=== PATIENT | male | born 1955 | race Caucasian/White ===

== ENCOUNTER 2020-05-07 08:32 | Inpatient (IN) | payer MEDICAID ==
[2020-05-07] VITALS (7 sets, daily range): BP systolic 94–138; BP diastolic 9–74
[~2020-05-07] VITALS: Ht 175.3 cm; Wt 89.8 kg
[2020-05-07] MEDS ORDERED: Pantoprazole Inj IVP ONE (08:45)
--- NOTE | 2020-05-07 08:46 | Emergency Room Report ---
History of Present Illness General Chief Complaint: weakness Source: Patient Present Illness HPI Patient is a 64-year-old male who presents to the ER complaining of extreme fatigue. Patient states that he had 10-11 episodes of watery diarrhea yesterday and today feels extremely weak and fatigued. He denies any headache or blurry vision. He denies any focal weakness. Patient denies any cough. He complains of epigastric abdominal pain. Patient states that he has had multiple abdominal surgeries in the past. Patient also complains of slight chest pain and shortness of breath. He states he has a history of heart disease. Patient states that he gets his care in [place]. He denies any sick contacts. He denies any rash. Allergies: Coded Allergies: No Known Allergies (Unverified , 05/07/20) Patient History Reviewed Nursing Documentation: PMH: Agreed; PSxH: Agreed Review of Systems All Other Systems: negative except mentioned in HPI Physical Exam Sp02 EP Interpretation: reviewed, normal General Appearance: alert, GCS 15, non-toxic, mild distress Head: normocephalic, atraumatic Eyes: bilateral eye normal inspection, bilateral eye PERRL ENT: hearing grossly normal, normal pharynx, no angioedema, normal voice, dry mucus membranes Neck: full range of motion, no meningismus Respiratory: chest non-tender, normal breath sounds, speaking full sentences, other - Bibasilar rhonchi Cardiovascular #1: regular rate, rhythm, no edema Gastrointestinal: no guarding, no rebound, other - Epigastric tenderness to palpation Rectal: deferred Musculoskeletal: normal range of motion Neurologic: body die maker III-XII nml as tested, oriented x3 Psychiatric: no suicidal/homicidal ideation Skin: no rash Lymphatic: no adenopathy Procedures Critical Care Time Critical Care Time Total critical care time: Approximately 35 minutes. Due to a high probability of clinically significant, life threatening deterioration, the patient required my highest level of preparedness to intervene emergently and I personally spent this critical care time directly and personally managing the patient. This critical care time included obtaining a history; examining the patient; pulse oximetry; ordering and review of studies; arranging urgent treatment with development of a management plan; evaluation of patient's response to treatment ; frequent reassessment; and, discussions with other providers.This critical care time was performed to assess and manage the high probability of imminent, life-threatening deterioration that could result in multi-organ failure. It was exclusive of separately billable procedures and treating other patients and teaching time. Please see MDM section and the rest of the note for further information on patient assessment and treatment. Medical Decision Making Diagnostic Impression: Primary Impression: Severe sepsis Additional Impression: Pneumonia ER Course Patient has been pancultured. Patient presented with borderline blood pressure which improved after IV fluids. Patient was not given the full 30 cc/kg of IV fluids due to risk of respiratory failure as BNP is almost 2000. Patient started on vancomycin as well as cefepime. Patient to be admitted for further treatment and evaluation. Laboratory Tests Test 05/07/20 08:55 05/07/20 10:10 White Blood Count 6.5 K/UL (4.8-10.8) Red Blood Count 3.93 M/UL (4.70-6.10) L Hemoglobin 10.2 G/DL (14.2-18.0) L Hematocrit 33.5 % (42.0-52.0) L Mean Corpuscular Volume 85 FL (80-99) Mean Corpuscular Hemoglobin 25.8 PG (27.0-31.0) L Mean Corpuscular Hemoglobin Concent 30.3 G/DL (32.0-36.0) L Red Cell Distribution Width 17.8 % (11.6-14.8) H Platelet Count 203 K/UL (150-450) Mean Platelet Volume 7.9 FL (6.5-10.1) Neutrophils (%) (Auto) 67.9 % (45.0-75.0) Lymphocytes (%) (Auto) 23.3 % (20.0-45.0) Monocytes (%) (Auto) 5.3 % (1.0-10.0) Eosinophils (%) (Auto) 2.7 % (0.0-3.0) Basophils (%) (Auto) 0.9 % (0.0-2.0) Prothrombin Time 11.8 SEC (9.30-11.50) H Prothrombin Time INR 1.1 (0.9-1.1) Activated Partial Thromboplast Time 22 SEC (23-33) L Sodium Level 140 MMOL/L (136-145) Potassium Level 4.2 MMOL/L (3.5-5.1) Chloride Level 107 MMOL/L (98-107) Carbon Dioxide Level 25 MMOL/L (21-32) Anion Gap 8 mmol/L (5-15) Blood Urea Nitrogen 18 mg/dL (7-18) Creatinine 1.3 MG/DL (0.55-1.30) Estimated Glomerular Filtration Rate 55.9 mL/min (>60) Glucose Level 142 MG/DL (74-106) H Lactic Acid Level 3.30 mmol/L (0.4-2.0) H Calcium Level 8.7 MG/DL (8.5-10.1) Phosphorus Level 3.8 MG/DL (2.5-4.9) Magnesium Level 2.2 MG/DL (1.8-2.4) Total Bilirubin 0.2 MG/DL (0.2-1.0) Aspartate Amino Transferase (AST) 28 U/L (15-37) Alanine Aminotransferase (ALT) 42 U/L (12-78) Alkaline Phosphatase 73 U/L (46-116) Total Creatine Kinase 39 U/L (26-308) Troponin I 0.013 ng/mL (0.000-0.056) Pro-B-Type Natriuretic Peptide 1147 pg/mL (0-125) H Total Protein 6.2 G/DL (6.4-8.2) L Albumin 3.0 G/DL (3.4-5.0) L Globulin 3.2 g/dL Albumin/Globulin Ratio 0.9 (1.0-2.7) L Lipase 218 U/L (73-393) Urine Color Pale yellow Urine Appearance Clear Urine pH 5 (4.5-8.0) Urine Specific [place] 1.010 (1.005-1.035) Urine Protein Negative (NEGATIVE) Urine Glucose (UA) Negative (NEGATIVE) Urine Ketones Negative (NEGATIVE) Urine Blood Negative (NEGATIVE) Urine Nitrite Negative (NEGATIVE) Urine Bilirubin Negative (NEGATIVE) Urine Urobilinogen Normal MG/DL (0.0-1.0) Urine Leukocyte Esterase Negative (NEGATIVE) Urine Opiates Screen Negative (NEGATIVE) Urine Barbiturates Screen Negative (NEGATIVE) Phencyclidine (PCP) Screen Negative (NEGATIVE) Urine Amphetamines Screen Negative (NEGATIVE) Urine Benzodiazepines Screen Positive (NEGATIVE) H Urine Cocaine Screen Negative (NEGATIVE) Urine Marijuana (THC) Screen Negative (NEGATIVE) Microbiology Date/Time Source Procedure Growth Status 05/07/20 08:55 Nasopharynx SARS-CoV-2 RdRp Gene Assay - Final Complete EKG Diagnostic Results EKG Time: 08:33 EP Interpretation: Lisa Akins MD Rate: normal - 64 bpm Rhythm: NSR ST Segments: no acute changes Other Impression Sinus rhythm with first-degree AV block inverted T waves V3 through V6 as well as 1 and aVL ASA given to the pt in ED: Yes Rhythm Strip Diag. Results Rhythm Strip Time: 08:45 EP Interpretation: yes - Lisa Akins MD Rate: 64 bpm Rhythm: NSR, no PVC's, no ectopy Chest X-Ray Diagnostic Results Chest X-Ray Diagnostic Results : Chest X-Ray Ordered: Yes # of Views/Limited/Complete: 1 View Indication: Chest Pain EP Interpretation: Yes Interpretation: no consolidation, no effusion, no pneumothorax, no acute cardiopulmonary disease Impression: No acute disease Electronically Signed by: Lisa Akins MD Disposition: ADMITTED INPATIENT Condition: Critical Physician Consult: Dr. Jeffery MD at 1230pm Additional Instructions: Please note that this report is being documented using [employer] technology. This can lead to erroneous entry secondary to incorrect interpretation by the dictating instrument. Sepsis Event Note Evaluation Current Stage of Sepsis: Severe Sepsis Possible Source: Pulmonary Focused Exam Allergies: Coded Allergies: No Known Allergies (Unverified , 05/07/20) Date Exam Occurred: May 07, 2020 Time Exam Occurred: 11:29 Laboratory Studies Laboratory Tests Test 05/07/20 08:55 05/07/20 10:10 White Blood Count 6.5 K/UL (4.8-10.8) Red Blood Count 3.93 M/UL (4.70-6.10) L Hemoglobin 10.2 G/DL (14.2-18.0) L Hematocrit 33.5 % (42.0-52.0) L Mean Corpuscular Volume 85 FL (80-99) Mean Corpuscular Hemoglobin 25.8 PG (27.0-31.0) L Mean Corpuscular Hemoglobin Concent 30.3 G/DL (32.0-36.0) L Red Cell Distribution Width 17.8 % (11.6-14.8) H Platelet Count 203 K/UL (150-450) Mean Platelet Volume 7.9 FL (6.5-10.1) Neutrophils (%) (Auto) 67.9 % (45.0-75.0) Lymphocytes (%) (Auto) 23.3 % (20.0-45.0) Monocytes (%) (Auto) 5.3 % (1.0-10.0) Eosinophils (%) (Auto) 2.7 % (0.0-3.0) Basophils (%) (Auto) 0.9 % (0.0-2.0) Prothrombin Time 11.8 SEC (9.30-11.50) H Prothromb Time International Ratio 1.1 (0.9-1.1) Activated Partial Thromboplast Time 22 SEC (23-33) L Sodium Level 140 MMOL/L (136-145) Potassium Level 4.2 MMOL/L (3.5-5.1) Chloride Level 107 MMOL/L (98-107) Carbon Dioxide Level 25 MMOL/L (21-32) Anion Gap 8 mmol/L (5-15) Blood Urea Nitrogen 18 mg/dL (7-18) Creatinine 1.3 MG/DL (0.55-1.30) Estimat Glomerular Filtration Rate 55.9 mL/min (>60) Glucose Level 142 MG/DL (74-106) H Lactic Acid Level 3.30 mmol/L (0.4-2.0) H Calcium Level 8.7 MG/DL (8.5-10.1) Phosphorus Level 3.8 MG/DL (2.5-4.9) Magnesium Level 2.2 MG/DL (1.8-2.4) Total Bilirubin 0.2 MG/DL (0.2-1.0) Aspartate Amino Transf (AST/SGOT) 28 U/L (15-37) Alanine Aminotransferase (ALT/SGPT) 42 U/L (12-78) Alkaline Phosphatase 73 U/L (46-116) Total Creatine Kinase 39 U/L (26-308) Troponin I 0.013 ng/mL (0.000-0.056) Pro-B-Type Natriuretic Peptide 1147 pg/mL (0-125) H Total Protein 6.2 G/DL (6.4-8.2) L Albumin 3.0 G/DL (3.4-5.0) L Globulin 3.2 g/dL Albumin/Globulin Ratio 0.9 (1.0-2.7) L Lipase 218 U/L (73-393) Urine Color Pale yellow Urine Appearance Clear Urine pH 5 (4.5-8.0) Urine Specific [place] 1.010 (1.005-1.035) Urine Protein Negative (NEGATIVE) Urine Glucose (UA) Negative (NEGATIVE) Urine Ketones Negative (NEGATIVE) Urine Blood Negative (NEGATIVE) Urine Nitrite Negative (NEGATIVE) Urine Bilirubin Negative (NEGATIVE) Urine Urobilinogen Normal MG/DL (0.0-1.0) Urine Leukocyte Esterase Negative (NEGATIVE) Urine Opiates Screen Negative (NEGATIVE) Urine Barbiturates Screen Negative (NEGATIVE) Phencyclidine (PCP) Screen Negative (NEGATIVE) Urine Amphetamines Screen Negative (NEGATIVE) Urine Benzodiazepines Screen Positive (NEGATIVE) H Urine Cocaine Screen Negative (NEGATIVE) Urine Marijuana (THC) Screen Negative (NEGATIVE) Vital Signs Last 24 Hour Vital Signs Date Time Temp Pulse Resp B/P (MAP) Pulse Ox O2 Delivery O2 Flow Rate FiO2 05/07/20 08:50 66 20 Room Air 05/07/20 08:50 98.2 66 20 94/56 97 Room Air 05/07/20 08:42 98.2 66 20 97/46 (63) 97 Room Air Respiratory Exam: Rhonchi Cardiovascular Exam: RRR Capillary Refill: Less Than 2 Seconds Peripheral Pulse: Lisa Marroquin M.D. May 07, 2020 08:46
--- NOTE | 2020-05-07 08:50 | NUR ---
ED Nurse Note: Patient walked into ED from home c/o weakness, fatigue, decreased appetite, and diarrhea x 3 days. Patient states he had about 10 episodes of diarrhea last night. Patient states he has mild 2/10 chest pain. Patient AxO x 4, NS on the band cutter. Patient placed in hospital gown and EKG done. O2 sat 98% on RA, BP 94/56, ERMD aware. Blood drawn and sent to lab.
[2020-05-07] MEDS ORDERED: CYMBALTA60 MG ORAL (09:08)
[2020-05-07] MEDS ORDERED: GABAPENTIN100 MG ORAL (09:08)
[2020-05-07] MEDS ORDERED: ASPIR 8181 MG ORAL (09:08)
[2020-05-07] MEDS ORDERED: BUSPIRONE HCL30 MG ORAL (09:08)
[2020-05-07] MEDS ORDERED: NALTREXONE HCL50 MG PO (09:08)
[2020-05-07] MEDS ORDERED: DICYCLOMINE HCL10 MG ORAL (09:08)
[2020-05-07] MEDS ORDERED: METOPROLOL TART25 MG ORAL (09:08)
[2020-05-07] MEDS ORDERED: MELATONIN5 M5 ORAL (09:08)
[2020-05-07] MEDS ORDERED: FLOMAX0.4 MG ORAL (09:08)
[2020-05-07] MEDS: Aspirin EC 325mg tab ORAL SCH (09:16)
[2020-05-07] MEDS ORDERED: fentaNYL 100 mcg/2 mL IV ONE (09:30)
[2020-05-07] MEDS ORDERED: Omnipaque 350 100ml vial INJ PRN (09:30)
[2020-05-07 09:31] LABS: ANION GAP 8 mmol/L (5-15); BLOOD UREA NITROGEN 18 mg/dL (7-18); CALCIUM 8.7 MG/DL (8.5-10.1); CARBON DIOXIDE 25 MMOL/L (21-32); CHLORIDE 107 MMOL/L (98-107); CREATININE 1.3 MG/DL (0.55-1.30); POTASSIUM 4.2 MMOL/L (3.5-5.1); SODIUM 140 MMOL/L (136-145)
[2020-05-07 09:41] LABS: ALANINE AMINOTRANSFERASE 42 U/L (12-78); ALBUMIN/GLOBULIN RATIO 0.9 (1.0-2.7); ALKALINE PHOSPHATASE 73 U/L (46-116); ASPARTATE AMINO TRANSFERASE 28 U/L (15-37); BILIRUBIN,TOTAL 0.2 MG/DL (0.2-1.0); CREATINE KINASE 39 U/L (26-308); PHOSPHORUS 3.8 MG/DL (2.5-4.9)
[2020-05-07 09:42] LABS: INR 1.1 (0.9-1.1)
[2020-05-07] MEDS ORDERED: Vancomycin 1 GM in NS 275 ML IVPB ONE (09:45)
[2020-05-07] MEDS ORDERED: Cefepime HCl 2 GM in D5W 55 ML IVPB ONE (09:45)
[2020-05-07 09:49] LABS: BASOPHILS % (AUTO) 0.9 % (0.0-2.0); EOSINOPHILS % (AUTO) 2.7 % (0.0-3.0); HEMATOCRIT 33.5 % (42.0-52.0); HEMOGLOBIN 10.2 G/DL (14.2-18.0); LYMPHOCYTES % (AUTO) 23.3 % (20.0-45.0); MEAN CORPUSCULAR VOLUME 85 FL (80-99); MONOCYTES % (AUTO) 5.3 % (1.0-10.0); NEUTROPHILS % (AUTO) 67.9 % (45.0-75.0); PLATELET COUNT 203 K/UL (150-450); RED BLOOD COUNT 3.93 M/UL (4.70-6.10); RED CELL DISTRIBUTION WIDTH 17.8 % (11.6-14.8); WHITE BLOOD COUNT 6.5 K/UL (4.8-10.8)
--- NOTE | 2020-05-07 09:50 | NUR ---
ED Nurse Note: Urine specimen sent to lab
--- NOTE | 2020-05-07 10:06 | Diagnostic Imaging Report ---
Procedure: XRAY Chest 1v Reason for study: Chest pain Comparison films: None. FINDINGS: A single one view chest is obtained. Vascularity is normal. There is mild right basilar atelectasis Cardiac and mediastinal silhouette are within normal limits. CP angles are sharp. The bony thorax appear unremarkable. IMPRESSION: Mild right basilar atelectasis.
--- NOTE | 2020-05-07 10:36 | NUR ---
ED Nurse Note: Patient taken to CT
[2020-05-07 10:41] LABS: APPEARANCE,URINE CLEAR; BILIRUBIN, URINE NEGATIVE (NEGATIVE); COLOR,URINE PALE YELLOW; GLUCOSE, URINE (UA) NEGATIVE (NEGATIVE); KETONES,URINE NEGATIVE (NEGATIVE); LEUKOCYTE ESTERASE ,URINE NEGATIVE (NEGATIVE); NITRITE,URINE NEGATIVE (NEGATIVE); PH,URINE 5 (4.5-8.0); PROTEIN,URINE NEGATIVE (NEGATIVE); UROBILINOGEN,URINE NORMAL MG/DL (0.0-1.0)
--- NOTE | 2020-05-07 11:10 | NUR ---
ED Nurse Note: Patient returned from CT
[2020-05-07] MEDS ORDERED: Morphine Sulfate 4mg/ml Inj (IV USE ONLY) IVP ONE (11:45)
--- NOTE | 2020-05-07 12:00 | NUR ---
ED Nurse Note: Called and notified lab that reflex lactic needs to be drawn.
--- NOTE | 2020-05-07 12:24 | Diagnostic Imaging Report ---
EXAM: CT CTA Chest w Contrast CLINICAL HISTORY: Shortness of breath. Evaluate for pulmonary embolism. TECHNIQUE: CT angiogram of the pulmonary vasculature performed with IV contrast. 2-D and 3-D reformat images obtained. All CT scans at this facility are performed using dose modulation techniques as appropriate to a performed exam including the following: automated exposure control with adjustment of the mA and/or kV according to patient size. RADIATION DOSE: CTDIvol: 59.10 mGy DLP: 816.5 mGy-cm Dose information generated by the CT scanner is available in PACS. COMPARISON: None FINDINGS: There is adequate opacification of the pulmonary vascularity. There is no central filling defects or thrombus identified. Peripheral subsegmental branches also appear unremarkable. The aorta is normal in caliber and there is no intimal flap or dissection. Small lymph nodes noted in the mediastinum. There is mild dependent hazy atelectasis in the posterior lung bases. There are bilateral streaky densities in both lung bases as well likely atelectasis . There is a tiny right effusion. Limited images through the upper abdomen show postoperative changes of the stomach. Degenerative changes of the spine noted. IMPRESSION: NO CT EVIDENCE OF PULMONARY EMBOLISM. BIBASILAR INFILTRATES. TINY RIGHT EFFUSION.
--- NOTE | 2020-05-07 12:30 | Diagnostic Imaging Report ---
EXAM: CT CT Abdomen Pelvis w/Contrast INDICATION: Reason For Exam: ABD PAIN. COMPARISON: None TECHNIQUE: Axial images were obtained through the abdomen pelvis with intravenous contrast. Sagittal and coronal reformats are generated. All CT scans at this facility are performed using dose modulation techniques as appropriate to a performed exam including the following: automated exposure control with adjustment of the mA and/or kV according to patient size. RADIATION DOSE: CTDIvol: 59.1 mGy DLP: 816.5 mGy-cm Dose information generated by the CT scanner is available in PACS. FINDINGS: Atelectasis noted in both lung bases. The liver and spleen are homogeneous. Gallbladder is absent. The pancreas is unremarkable. Adrenals are normal in morphology. The kidneys are normal in size, shape and axis. Patient status post gastric surgery. Small bowel loops are nondistended. Increased stool lucencies noted throughout the colon. The appendix is not visualized. There is no free fluid or free air. No pathologic adenopathy demonstrated. Urinary bladder appears unremarkable. Degenerative changes of the spine noted. IMPRESSION: NO SIGN OF ACUTE DISEASE IN THE ABDOMEN AND PELVIS. STATUS POST CHOLECYSTECTOMY AND ALSO PRIOR GASTRIC SURGERY. INCREASED STOOL LUCENCIES IN THE COLON.
--- NOTE | 2020-05-07 13:56 | NUR ---
ED Nurse Note: Patient resting in bed, no s/s of acute distress, breathing even and unlabored, VSS. Will continue to monitor.
--- NOTE | 2020-05-07 15:09 | NUR ---
ED Nurse Note: Report given to Ibrahima SWANN
--- NOTE | 2020-05-07 15:25 | NUR ---
NURSE NOTES: Patient transferred from ED via gurney to room 218-2, Patient is awake, alert and oriented x4, on room air, no acute distress/SOB noted, respiration even and unlabored, complaining of abd pain at this time. monitoring analyst placed on patient, Sinus damaris. IV on right FA patent and flushed. Skin intact. Belonging list check done with transferring nurse. Orientation to room, call light, bathroom and policies done. Call light within reach and encouraged to use call light when needed. All safety precaution measure done. Will contact MD for admission order.
--- NOTE | 2020-05-07 16:50 | NUR ---
NURSE NOTES: Patient has an episode of PVC's with possible P wave. Dr. Curiel is aware.
[2020-05-07] MEDS ORDERED: Acetaminophen 500mg (ES) tab ORAL PRN (18:30)
--- NOTE | 2020-05-07 19:15 | NUR ---
HAND-OFF: Report given to Sarita/RN, Patient is in stable condition. Endorsed plan of care.
--- NOTE | 2020-05-07 19:30 | NUR ---
NURSE NOTES: Received report from SHREE Oliva. Patient is awake on bed, alert and oriented x 4, anxious at this time. school lunch monitor is in placed, shows sinus bradycardia with 1st degree heart block. On room air, with no SOB reported, saturation at this time is 95%. On clear liquid diet and advance as tolerated, instructed and amenable, at the moment patient states that he's still nauseous. Safety measures are in placed, bed in locked and lowest position, side rails up x 2. Bedside table and call light button within reach, advised to call for any assistance needed. Will continue plan of care.
[2020-05-07] MEDS: Morphine Sulfate 2mg/ml Inj(IV/IM USE ONLY) IVP PRN (20:26)
--- NOTE | 2020-05-07 20:46 | Cardiology Progress Note ---
Assessment/Plan Assessment/Plan The patient is seen and examined, full consult note will be dictated. Objective Last 24 Hour Vital Signs Date Time Temp Pulse Resp B/P (MAP) Pulse Ox O2 Delivery O2 Flow Rate FiO2 05/07/20 15:57 Room Air 05/07/20 15:39 51 05/07/20 15:30 97.7 51 20 138/71 (93) 99 05/07/20 15:17 98.0 69 18 108/68 99 Room Air 05/07/20 15:15 98.0 67 18 124/9 100 Room Air 05/07/20 13:54 98.0 69 18 108/68 99 Room Air 05/07/20 12:30 98.0 67 19 106/66 100 Room Air 05/07/20 12:15 98.0 05/07/20 10:45 98.2 69 20 102/64 98 Room Air 05/07/20 10:16 98.0 05/07/20 08:50 66 20 Room Air 05/07/20 08:50 98.2 66 20 94/56 97 Room Air 05/07/20 08:42 98.2 66 20 97/46 (63) 97 Room Air Laboratory Tests Test 05/07/20 08:55 05/07/20 10:10 05/07/20 13:00 White Blood Count 6.5 K/UL (4.8-10.8) Red Blood Count 3.93 M/UL (4.70-6.10) L Hemoglobin 10.2 G/DL (14.2-18.0) L Hematocrit 33.5 % (42.0-52.0) L Mean Corpuscular Volume 85 FL (80-99) Mean Corpuscular Hemoglobin 25.8 PG (27.0-31.0) L Mean Corpuscular Hemoglobin Concent 30.3 G/DL (32.0-36.0) L Red Cell Distribution Width 17.8 % (11.6-14.8) H Platelet Count 203 K/UL (150-450) Mean Platelet Volume 7.9 FL (6.5-10.1) Neutrophils (%) (Auto) 67.9 % (45.0-75.0) Lymphocytes (%) (Auto) 23.3 % (20.0-45.0) Monocytes (%) (Auto) 5.3 % (1.0-10.0) Eosinophils (%) (Auto) 2.7 % (0.0-3.0) Basophils (%) (Auto) 0.9 % (0.0-2.0) Prothrombin Time 11.8 SEC (9.30-11.50) H Prothromb Time International Ratio 1.1 (0.9-1.1) Activated Partial Thromboplast Time 22 SEC (23-33) L Sodium Level 140 MMOL/L (136-145) Potassium Level 4.2 MMOL/L (3.5-5.1) Chloride Level 107 MMOL/L (98-107) Carbon Dioxide Level 25 MMOL/L (21-32) Anion Gap 8 mmol/L (5-15) Blood Urea Nitrogen 18 mg/dL (7-18) Creatinine 1.3 MG/DL (0.55-1.30) Estimat Glomerular Filtration Rate 55.9 mL/min (>60) Glucose Level 142 MG/DL (74-106) H Lactic Acid Level 3.30 mmol/L (0.4-2.0) H 1.60 mmol/L (0.66-2.22) Calcium Level 8.7 MG/DL (8.5-10.1) Phosphorus Level 3.8 MG/DL (2.5-4.9) Magnesium Level 2.2 MG/DL (1.8-2.4) Total Bilirubin 0.2 MG/DL (0.2-1.0) Aspartate Amino Transf (AST/SGOT) 28 U/L (15-37) Alanine Aminotransferase (ALT/SGPT) 42 U/L (12-78) Alkaline Phosphatase 73 U/L (46-116) Total Creatine Kinase 39 U/L (26-308) Troponin I 0.013 ng/mL (0.000-0.056) Pro-B-Type Natriuretic Peptide 1147 pg/mL (0-125) H Total Protein 6.2 G/DL (6.4-8.2) L Albumin 3.0 G/DL (3.4-5.0) L Globulin 3.2 g/dL Albumin/Globulin Ratio 0.9 (1.0-2.7) L Lipase 218 U/L (73-393) Urine Color Pale yellow Urine Appearance Clear Urine pH 5 (4.5-8.0) Urine Specific [place] 1.010 (1.005-1.035) Urine Protein Negative (NEGATIVE) Urine Glucose (UA) Negative (NEGATIVE) Urine Ketones Negative (NEGATIVE) Urine Blood Negative (NEGATIVE) Urine Nitrite Negative (NEGATIVE) Urine Bilirubin Negative (NEGATIVE) Urine Urobilinogen Normal MG/DL (0.0-1.0) Urine Leukocyte Esterase Negative (NEGATIVE) Urine Opiates Screen Negative (NEGATIVE) Urine Barbiturates Screen Negative (NEGATIVE) Phencyclidine (PCP) Screen Negative (NEGATIVE) Urine Amphetamines Screen Negative (NEGATIVE) Urine Benzodiazepines Screen Positive (NEGATIVE) H Urine Cocaine Screen Negative (NEGATIVE) Urine Marijuana (THC) Screen Negative (NEGATIVE) Microbiology Date/Time Source Procedure Growth Status 05/07/20 08:55 Nasopharynx SARS-CoV-2 RdRp Gene Assay - Final Complete Ruben Lozano MD May 07, 2020 20:46
--- NOTE | 2020-05-07 21:05 | NUR ---
NURSE NOTES: Dr. Lozano made rounds, informed MD that patient wants to see a doctor or else, he preferred to be home instead. Dr. Lozano see the patient, no orders was made. At this time, patient denies any chest pain, no desaturation but complains of epigastric pain, scale of 8/10, pain described as continuous aching, morphine 2 mg/IV given. Will continue to monitor.
--- NOTE | 2020-05-07 21:45 | Consultation ---
DATE OF CONSULTATION: 05/07/2020 CARDIOLOGY CONSULTATION CONSULTING PHYSICIAN: Ruben Lozano M.D. REFERRING PHYSICIAN: Alexx Curiel M.D. REASON FOR CONSULTATION: Management of hypotension. HISTORY OF PRESENT ILLNESS: The patient is a very unfortunate 64-year-old gentleman, who presents to the hospital with complaints of extreme fatigue. He states that he has had diarrhea since 05/06/2020 and has had just about 11 episodes of diarrhea. He claims that he has lost a lot a water. He complains of extreme weakness. He also complains of epigastric pain. has chest pain and shortness of breath. Upon arrival to the hospital, his blood pressure was 97/46 mmHg and heart rate of 66. A 12-lead electrocardiogram was significant for sinus rhythm at a rate of 64 with T-wave inversions in leads V3 to V6 as well as lead I and aVL suggestive of possible ischemia. Laboratory findings in the emergency department also revealed normal troponin I level at 0.013 and proBNP of 1147. The patient had a chest x-ray in the emergency department, which revealed cardiomegaly with cephalization suggestive of possible congestive heart failure. CT angiography of the chest to rule out pulmonary embolism, but confirmed bibasilar infiltrates with associated right pleural effusion. The patient was admitted to telemetry for further evaluation and management. Cardiology consultation was made at the request of Dr. Curiel for addressing the shortness of breath, chest pain, and management of hypotension. PAST MEDICAL HISTORY: 1. History of heart disease. 2. History of multiple abdominal surgeries. PAST SURGICAL HISTORY: Abdominal surgeries in the past. ALLERGIES: No known drug allergies. MEDICATIONS: List of medications, aspirin 81 mg daily, buspirone 30 mg twice daily, dicyclomine 10 mg three times a day, Cymbalta 60 mg daily, gabapentin 100 mg three times a day, melatonin 5 mg at bedtime p.r.n. insomnia, metoprolol 37.5 mg twice daily, naltrexone 50 mg daily, and Flomax 0.4 mg daily. SOCIAL HISTORY: Denies any tobacco, alcohol, or illicit drug use. FAMILY HISTORY: No premature coronary artery disease in the first-degree relatives. REVIEW OF SYSTEMS: A 12-system review done essentially negative except what was mentioned in the history of present illness. PHYSICAL EXAMINATION: VITAL SIGNS: Blood pressure was 97/46, pulse of 66, respirations 20, temperature 98.2 degrees Fahrenheit, and O2 saturation 97% on room air. GENERAL: This is a very unfortunate 64-year-old gentleman, in no apparent respiratory distress. Alert and oriented x4. HEENT: Atraumatic, normocephalic. Anicteric. Pupils are equal, round, and reactive to light and accommodation. Extraocular muscles intact. Positive dry mucosal membrane. NECK: JVP is less than 5 cm. No carotid bruit. Carotid upstrokes 2+ bilaterally. CARDIOVASCULAR: Normal S1, S2. Regular rate and rhythm. No murmurs, gallops, or rubs. PMI is at fourth intercostal space in the midclavicular line. LUNGS: Clear to auscultation bilaterally. ABDOMEN: Epigastric tenderness. Otherwise, no hepatosplenomegaly. Positive bowel sounds. EXTREMITIES: No evidence of edema, clubbing, or cyanosis. LABORATORY FINDINGS: WBC 6.5, hemoglobin of 10.2, hematocrit 33.5, and platelet count of 203. Sodium 140, potassium is 4.2, chloride is 107, bicarbonate 25, BUN of 18, creatinine 1.3, glucose is 142. Calcium is 8.7, magnesium 2.2. Troponin I is 0.013, and proBNP was 1147. ASSESSMENT/PLAN: The patient is a very unfortunate 64-year-old gentleman, seen in Cardiology consultation. 1. Shortness of breath. Chest x-ray appears to be somewhat suggestive of congestive heart failure with cephalization. Also elevated brain-natriuretic peptide is in favor of this diagnosis. I would like to hold off 2D echocardiography for evaluation of LV systolic and diastolic function and help with the hemodynamic management. 2. Hypovolemic shock with systolic blood pressure below 100 mmHg due to volume loss during episodes of diarrhea. The patient responded well to hydration. Further therapeutic and diagnostic decision will be based on the results of the echocardiography. I would like to thank, Dr. Curiel, for the courtesy of this consultation. Ruben Lozano M.D. DR: GAUTAM JOB#: [id number] CC:
[2020-05-08] VITALS: BP 118/67
[2020-05-08] MEDS: Morphine Sulfate 2mg/ml Inj(IV/IM USE ONLY) IVP PRN ×4 (02:46→21:09)
[2020-05-08 04:00] VITALS: BP 115/62
--- NOTE | 2020-05-08 05:00 | NUR ---
NURSE NOTES: Patient still complaints of epigastric pain, scale of 8/10, non-radiating, pain described as continuous, pressure and aching. Demands to have Morphine 4mg/IV and fentanyl IV. Called Dr. Kumar and left a message, awaiting for call back. Will continue to monitor.
--- NOTE | 2020-05-08 06:25 | NUR ---
NURSE NOTES: Called Dr. Curiel and left a message, updated him regarding patient's pain medication. At this time, patient is in stable condition, denied chest pain. SOB but still with epigastric pain. Awaiting for call back.
--- NOTE | 2020-05-08 07:10 | NUR ---
HAND-OFF: Report given to SHREE Oliva. Patient is on bed, awake in stable condition. RN made aware of patient's pain medication. Will continue plan of care.
--- NOTE | 2020-05-08 07:15 | NUR ---
NURSE NOTES: Received report from Sarita/RN. Patient is awake, lying semi-fowlers in bed, resting comfortably. On Room air, No distress or SOB noted at this time. Able to make needs known. IV on Right FA 20G patent and intact, patient on cloth grader. Call light within reach, encouraged to use call light when needed. Bed in low position and locked. Will continue plan of care.
[2020-05-08 07:19] LABS: BASOPHILS % (AUTO) 1.3 % (0.0-2.0); EOSINOPHILS % (AUTO) 2.6 % (0.0-3.0); HEMATOCRIT 30.8 % (42.0-52.0); HEMOGLOBIN 9.4 G/DL (14.2-18.0); LYMPHOCYTES % (AUTO) 26.1 % (20.0-45.0); MEAN CORPUSCULAR VOLUME 84 FL (80-99); MONOCYTES % (AUTO) 7.5 % (1.0-10.0); NEUTROPHILS % (AUTO) 62.5 % (45.0-75.0); PLATELET COUNT 201 K/UL (150-450); RED BLOOD COUNT 3.67 M/UL (4.70-6.10); RED CELL DISTRIBUTION WIDTH 17.3 % (11.6-14.8); WHITE BLOOD COUNT 6.4 K/UL (4.8-10.8)
[2020-05-08 07:20] LABS: ALANINE AMINOTRANSFERASE 42 U/L (12-78); ALBUMIN 2.7 G/DL (3.4-5.0); ALKALINE PHOSPHATASE 65 U/L (46-116); ANION GAP 6 mmol/L (5-15); ASPARTATE AMINO TRANSFERASE 28 U/L (15-37); BILIRUBIN,TOTAL 0.2 MG/DL (0.2-1.0); BLOOD UREA NITROGEN 14 mg/dL (7-18); CALCIUM 8.3 MG/DL (8.5-10.1); CARBON DIOXIDE 27 MMOL/L (21-32); CHLORIDE 108 MMOL/L (98-107); CREATININE 1.2 MG/DL (0.55-1.30); POTASSIUM 4.2 MMOL/L (3.5-5.1); SODIUM 140 MMOL/L (136-145)
[2020-05-08 08:00] VITALS: BP 134/76
[2020-05-08] MEDS: Aspirin EC 325mg tab ORAL SCH (08:53)
--- NOTE | 2020-05-08 10:02 | Consultation ---
History of Present Illness General Date patient seen: May 08, 2020 Chief Complaint: Present Illness Allergies: Coded Allergies: No Known Allergies (Unverified , 05/07/20) Medication History Scheduled Aspirin* (Aspir 81*), 81 MG ORAL DAILY, (Reported) Buspirone Hcl* (Buspirone Hcl*), 30 MG ORAL TWICE A DAY, (Reported) Duloxetine Hcl* (Cymbalta*), 60 MG ORAL DAILY, (Reported) Gabapentin* (Gabapentin*), 100 MG ORAL THREE TIMES A DAY, (Reported) Metoprolol Tartrate* (Metoprolol Tartrate*), 37.5 MG ORAL EVERY 12 HOURS, ( Reported) Naltrexone Hcl (Naltrexone Hcl), 50 MG PO DAILY, (Reported) Tamsulosin HCl (Flomax), 0.4 MG ORAL DAILY, (Reported) Scheduled PRN Dicyclomine Hcl* (Dicyclomine Hcl*), 10 MG ORAL TID PRN for , (Reported) Melatonin (Melatonin), 5 MG ORAL BEDTIME PRN for Insomnia, (Reported) Patient History Healthcare decision maker Resuscitation status Advanced Directive on File Physical Exam Last 24 Hour Vital Signs Date Time Temp Pulse Resp B/P (MAP) Pulse Ox O2 Delivery O2 Flow Rate FiO2 05/08/20 09:00 Room Air 05/08/20 08:00 58 05/08/20 08:00 97.9 60 18 134/76 (95) 95 05/08/20 04:00 97.9 58 20 115/62 (79) 95 05/08/20 04:00 55 05/08/20 00:00 97.7 55 20 118/67 (84) 96 05/08/20 00:00 59 05/07/20 21:00 Room Air 05/07/20 20:00 97.9 58 19 120/74 (89) 95 05/07/20 20:00 58 05/07/20 15:57 Room Air 05/07/20 15:39 51 05/07/20 15:30 97.7 51 20 138/71 (93) 99 05/07/20 15:17 98.0 69 18 108/68 99 Room Air 05/07/20 15:15 98.0 67 18 124/9 100 Room Air 05/07/20 13:54 98.0 69 18 108/68 99 Room Air 05/07/20 12:30 98.0 67 19 106/66 100 Room Air 05/07/20 12:15 98.0 05/07/20 10:45 98.2 69 20 102/64 98 Room Air 05/07/20 10:16 98.0 Intake and Output 05/07/20 05/08/20 18:59 06:59 Intake Total 0 ml 800 ml Output Total 1150 ml Balance 0 ml -350 ml Intake Oral 0 ml 800 ml Output Urine Total 1150 ml # Voids 4 Laboratory Tests Test 05/07/20 10:10 05/07/20 13:00 05/08/20 06:10 Urine Color Pale yellow Urine Appearance Clear Urine pH 5 (4.5-8.0) Urine Specific [place] 1.010 (1.005-1.035) Urine Protein Negative (NEGATIVE) Urine Glucose (UA) Negative (NEGATIVE) Urine Ketones Negative (NEGATIVE) Urine Blood Negative (NEGATIVE) Urine Nitrite Negative (NEGATIVE) Urine Bilirubin Negative (NEGATIVE) Urine Urobilinogen Normal MG/DL (0.0-1.0) Urine Leukocyte Esterase Negative (NEGATIVE) Urine Opiates Screen Negative (NEGATIVE) Urine Barbiturates Screen Negative (NEGATIVE) Phencyclidine (PCP) Screen Negative (NEGATIVE) Urine Amphetamines Screen Negative (NEGATIVE) Urine Benzodiazepines Screen Positive (NEGATIVE) H Urine Cocaine Screen Negative (NEGATIVE) Urine Marijuana (THC) Screen Negative (NEGATIVE) Lactic Acid Level 1.60 mmol/L (0.66-2.22) White Blood Count 6.4 K/UL (4.8-10.8) Red Blood Count 3.67 M/UL (4.70-6.10) L Hemoglobin 9.4 G/DL (14.2-18.0) L Hematocrit 30.8 % (42.0-52.0) L Mean Corpuscular Volume 84 FL (80-99) Mean Corpuscular Hemoglobin 25.5 PG (27.0-31.0) L Mean Corpuscular Hemoglobin Concent 30.4 G/DL (32.0-36.0) L Red Cell Distribution Width 17.3 % (11.6-14.8) H Platelet Count 201 K/UL (150-450) Mean Platelet Volume 7.8 FL (6.5-10.1) Neutrophils (%) (Auto) 62.5 % (45.0-75.0) Lymphocytes (%) (Auto) 26.1 % (20.0-45.0) Monocytes (%) (Auto) 7.5 % (1.0-10.0) Eosinophils (%) (Auto) 2.6 % (0.0-3.0) Basophils (%) (Auto) 1.3 % (0.0-2.0) Sodium Level 140 MMOL/L (136-145) Potassium Level 4.2 MMOL/L (3.5-5.1) Chloride Level 108 MMOL/L (98-107) H Carbon Dioxide Level 27 MMOL/L (21-32) Anion Gap 6 mmol/L (5-15) Blood Urea Nitrogen 14 mg/dL (7-18) Creatinine 1.2 MG/DL (0.55-1.30) Estimat Glomerular Filtration Rate > 60 mL/min (>60) Glucose Level 78 MG/DL (74-106) Calcium Level 8.3 MG/DL (8.5-10.1) L Total Bilirubin 0.2 MG/DL (0.2-1.0) Aspartate Amino Transf (AST/SGOT) 28 U/L (15-37) Alanine Aminotransferase (ALT/SGPT) 42 U/L (12-78) Alkaline Phosphatase 65 U/L (46-116) Total Protein 5.5 G/DL (6.4-8.2) L Albumin 2.7 G/DL (3.4-5.0) L Globulin 2.8 g/dL Albumin/Globulin Ratio 1.0 (1.0-2.7) Microbiology Date/Time Source Procedure Growth Status 05/07/20 10:10 Urine,Clean Catch Urine Culture - Preliminary NO GROWTH Resulted Height (Feet): 6 Height (Inches): 11.00 Weight (Pounds): 198 Medications Current Medications Medications (Trade) Dose Ordered Sig/James Route PRN Reason Start Time Stop Time Status Last Admin Dose Admin Acetaminophen (Tylenol) 500 mg Q4H PRN ORAL Moderate Pain (Pain Scale 4-6) 05/07/20 18:30 06/06/20 18:29 05/07/20 18:37 Aspirin (Ecotrin) 325 mg DAILY ORAL 05/07/20 09:00 06/21/20 08:59 05/08/20 08:53 Iohexol (Omnipaque 350 100ml) 100 ml NOW PRN INJ Radiology Procedure 05/07/20 09:30 05/09/20 09:24 Morphine Sulfate (Morphine Sulfate) 2 mg Q6H PRN IVP For Severe Pain 05/07/20 18:30 05/14/20 18:29 05/08/20 08:54 Assessment/Plan Assessment/Plan: (1) Abdominal pain (2) Gastroenteritis seen dictated Azam Guillen May 08, 2020 10:02
[2020-05-08 12:00] VITALS: BP 145/79
--- NOTE | 2020-05-08 14:01 | General Progress Note ---
Assessment/Plan Problem List: (1) Abdominal pain ICD Codes: R10.9 - Unspecified abdominal pain SNOMED: 86376999 (2) Chest pain ICD Codes: R07.9 - Chest pain, unspecified SNOMED: 54178561 Assessment/Plan: anemia h/o gastric surg diarrhea ppi carafate anemia work up stool studoes EGD if cleared by cardiology CT reviewed Subjective ROS Limited/Unobtainable: Yes Allergies: Coded Allergies: No Known Allergies (Unverified , 05/07/20) Objective Last 24 Hour Vital Signs Date Time Temp Pulse Resp B/P (MAP) Pulse Ox O2 Delivery O2 Flow Rate FiO2 05/08/20 12:00 73 05/08/20 12:00 97.9 65 20 145/79 (101) 98 05/08/20 09:00 Room Air 05/08/20 08:00 58 05/08/20 08:00 97.9 60 18 134/76 (95) 95 05/08/20 04:00 97.9 58 20 115/62 (79) 95 05/08/20 04:00 55 05/08/20 00:00 97.7 55 20 118/67 (84) 96 05/08/20 00:00 59 05/07/20 21:00 Room Air 05/07/20 20:00 97.9 58 19 120/74 (89) 95 05/07/20 20:00 58 05/07/20 15:57 Room Air 05/07/20 15:39 51 05/07/20 15:30 97.7 51 20 138/71 (93) 99 05/07/20 15:17 98.0 69 18 108/68 99 Room Air 05/07/20 15:15 98.0 67 18 124/9 100 Room Air Intake and Output 05/07/20 05/08/20 19:00 07:00 Intake Total 0 ml 800 ml Output Total 1150 ml Balance 0 ml -350 ml Intake Oral 0 ml 800 ml Output Urine Total 1150 ml # Voids 4 Laboratory Tests 05/08/20 06:10: White Blood Count 6.4, Red Blood Count 3.67L, Hemoglobin 9.4L, Hematocrit 30.8L , Mean Corpuscular Volume 84, Mean Corpuscular Hemoglobin 25.5L, Mean Corpuscular Hemoglobin Concent 30.4L, Red Cell Distribution Width 17.3H, Platelet Count 201, Mean Platelet Volume 7.8, Neutrophils (%) (Auto) 62.5, Lymphocytes (%) (Auto) 26.1, Monocytes (%) (Auto) 7.5, Eosinophils (%) (Auto) 2.6, Basophils (%) (Auto) 1.3, Sodium Level 140, Potassium Level 4.2, Chloride Level 108H, Carbon Dioxide Level 27, Anion Gap 6, Blood Urea Nitrogen 14, Creatinine 1.2, Estimat Glomerular Filtration Rate > 60, Glucose Level 78, Calcium Level 8.3L, Total Bilirubin 0.2, Aspartate Amino Transf (AST/SGOT) 28, Alanine Aminotransferase (ALT/SGPT) 42, Alkaline Phosphatase 65, Total Protein 5.5L, Albumin 2.7L, Globulin 2.8, Albumin/Globulin Ratio 1.0 Height (Feet): 6 Height (Inches): 11.00 Weight (Pounds): 198 General Appearance: alert EENT: normal ENT inspection Neck: normal alignment Cardiovascular: normal rate Respiratory/Chest: decreased breath sounds Abdomen: normal bowel sounds, non tender, soft Extremities: non-tender Ancelmo Lowe MD May 08, 2020 14:01
--- NOTE | 2020-05-08 14:45 | Consultation ---
DATE OF CONSULTATION: 05/08/2020 INFECTIOUS DISEASE CONSULTATION CONSULTING PHYSICIAN: Leonid Bateman MD. PRIMARY ATTENDING PHYSICIAN: Alexx Curiel MD. HISTORY OF PRESENT ILLNESS: This is a 64-year-old white male admitted yesterday from home complaining of extreme fatigue and diarrhea. This started from and already had 15 episodes of watery diarrhea. The patient has decrease in blood pressure. The lowest blood pressure in the hospital was 94/56, had lactic acidosis. PAST MEDICAL HISTORY: Hypertension, enlarged heart, and heart failure. PAST SURGICAL HISTORY: Totally he had five surgeries in abdomen. He had gastric surgery for bowel obstruction and cholecystectomy. ALLERGIES: No known drug allergy. MEDICATIONS: Tylenol, morphine sulfate, sodium. Got a dose of vancomycin and cefepime in the ER. SOCIAL HISTORY: Smoker of five cigarettes a day. , originally from [place], unemployed, was on pain medication Percocet until one month ago. REVIEW OF SYSTEMS: Fatigue. No fever. No chills. Watery diarrhea. No coughing. No chest pain. He had epigastric pain. No dysuria. PHYSICAL EXAMINATION: VITAL SIGNS: Temperature 97.9, pulse 60, blood pressure . GENERAL APPEARANCE: No acute distress. Seems to have normal weight. HEAD AND NECK: No oral lesion. HEART: Normal rate. LUNGS: Clear. ABDOMEN: Soft and nontender. EXTREMITIES: No edema. NEUROLOGIC: Awake, alert, and oriented x3. LABORATORY AND DIAGNOSTIC DATA: COVID-19 test was negative. Urine culture so far negative. WBC 6.4, hemoglobin 9.4, hematocrit 30.8, and platelets 201,000. Sodium 140, potassium 4.2, chloride 108, bicarb 27, BUN 14, creatinine 1.2, glucose 78. Lactic acid, the first one was 3.3, decreased to 1.6. Albumin 2.7. Lipase 218. Urine toxicology was positive for benzodiazepines. UA was negative. Chest x-ray was negative. CT scan of the abdomen was negative. CT angiogram of chest did not show any pulmonary emboli, but showed bibasilar infiltrate, tiny right effusions. IMPRESSION: 1. Watery diarrhea, likely viral gastroenteritis. 2. Lactic acidosis, resolved. 3. Anemia. 4. Fatigue. 5. Previous gastric surgeries. 6. Nicotine dependence. RECOMMENDATIONS: We will follow cultures. Observe off antibiotic. At the end of my exam, I thank Dr. Curiel for involving me in the care of this patient. Loenid Bateman M.D. DR: NOHEMY JOB#: [id number] CC:
[2020-05-08 16:00] VITALS: BP 141/95
--- NOTE | 2020-05-08 16:05 | NUR ---
CASE MANAGEMENT:REVIEW 64 YR OLD MALE FROM [facility] CC: ABDOMINAL AND CHEST PAIN. BODY ACHES, WEAKNESS AND DECREASED APPETITE SI: SEPSIS. PNEUMONIA 98.3 66 20 97/46 97% ON RA H/H-10.2/33.5 GLUCOSE+142 BNP+1147 IS: IV PROTONIX 1L NS BOLUS IV VANCOMYCIN IV FENTANYL X1 IV CEFEPIME IV MORPHINE ASA PO CT ABD/PELVIS URINE CX BLOOD CX CHEST XRAY : TO TELEMETRY
[2020-05-08] MEDS: Sucralfate 1gm tab ORAL SCH ×2 (17:38→20:48)
[2020-05-08] MEDS: BusPIRone 5mg Tab ORAL SCH (17:39)
--- NOTE | 2020-05-08 17:45 | Consultation ---
DATE OF CONSULTATION: 05/08/2020 PULMONARY CONSULTATION CONSULTING PHYSICIAN: Shyam Wang MD. HISTORY OF PRESENT ILLNESS: This is a 64-year-old male who came with chest pain as well as epigastric pain. He also reports lower abdominal pain. He feels the pain radiates to his back. He is an active smoker, smoking 6 cigarettes a today. He was seen and evaluated by Cardiology. He also reports that he had diarrhea. The patient's evaluation was notable for hemoglobin of 10, now dropped to 9.4. Lactic acid 3.3, now 1.6. His troponin has been negative. Coags are negative. Toxicology is positive for benzodiazepine and urinalysis was negative. The patient underwent imaging studies including CT pulmonary angiogram, which was negative for pulmonary embolism. He had fine bibasilar infiltrates. He also underwent CT pelvis and abdomen that showed that he had previous cholecystectomy and he had increased stool burden in the colon. Apart from this, the patient states that overall he is feeling better. PAST MEDICAL HISTORY: Notable for previous abdominal surgery, chronic tobacco usage. HOME MEDICATIONS: Buspirone, aspirin, dicyclomine, Cymbalta, Neurontin, melatonin, metoprolol, naltrexone, and Flomax. SOCIAL HISTORY: He admits to tobacco use. Denies substance abuse or marijuana. REVIEW OF SYSTEMS: Denies any headaches, hematemesis, melena, or hematochezia. PHYSICAL EXAMINATION: GENERAL: Reveals a 64-year-old male. HEENT: Unremarkable. LUNGS: Clear breath sounds bilaterally. ABDOMEN: Soft. EXTREMITIES: There is no edema. NEUROLOGIC: Nonfocal. LABORATORY DATA: Lab testing discussed above. IMPRESSION: 1. Atelectasis. 2. Abdominal pain. 3. Hypovolemia. 4. Chest pain. DISCUSSION: The patient would benefit from GI evaluation. He has been seen by pain management as well. His home medications have been reviewed and reconciled and continued. I will follow as needed as assistant associate full professor. Currently, I do not suspect an active pulmonary pathology. Shyam Wang M.D. DR: ANDRESSA JOB#: [id number] CC:
--- NOTE | 2020-05-08 19:10 | NUR ---
HAND-OFF: Report given to Yolanda/SHREE. Patient in stable condition. Endorsed plan of care.
--- NOTE | 2020-05-08 19:15 | NUR ---
NURSE NOTES: Report received from SHREE Handley. Patient is in bed sitting watching tv. No SOB or chest pain. child monitor intact and functioning reading sinus rhythm. Bedside table and call light with in reach. Bed in lowest position locked and siderails up for support. Will continue with plan of care.
[2020-05-08 20:00] VITALS: BP 168/95
[2020-05-08] MEDS: Pantoprazole Inj IVP SCH (20:45)
--- NOTE | 2020-05-08 21:45 | Consultation ---
DATE OF CONSULTATION: 05/08/2020 PAIN MANAGEMENT CONSULTATION CONSULTING PHYSICIAN: Geneva Kumar M.D. REFERRING PHYSICIAN: Alexx Curiel M.D. PHYSICIAN CLINICAL PHARMACOLOGIST: Darien Miller CHIEF COMPLAINT: Abdominal pain. HISTORY OF PRESENT ILLNESS: This is a 64-year-old male who is being seen on the telemetry floor of [facility] for initial pain management. The patient was admitted under the care of Dr. Curiel due to chest pain, being seen by cardiology physician, and has been having abdominal pain, which is mostly in his epigastric area since yesterday. It is constant acute pain increased with eating and reduced with medication and diet. He states that he has severe diarrhea, being seen by [facility] and infectious diseases doctor at this time and found to have gastroenteritis. We were consulted so the patient would have adequate pain control while here in the hospital. PAST MEDICAL HISTORY: Hypertension, hypoxemia, morbid obesity, depression, BPH. PAST SURGICAL HISTORY: Gastrectomy, gallbladder removal, stomach surgery. SOCIAL HISTORY: He is a smoker of tobacco. ALLERGIES: No known drug allergies. MEDICATIONS: Cymbalta, BuSpar, Flomax, and metoprolol. REVIEW OF SYSTEMS: Denies rash, fever, chills, sweating, dizziness, drowsiness, blurred vision, sore throat, shortness of breath or chest pain. No nausea, vomiting, diarrhea, blood in the stool or urine. No dysuria. PHYSICAL EXAMINATION: GENERAL: Alert, awake, and oriented. VITAL SIGNS: Blood pressure 120/85, heart rate 65, oxygen saturation 95%, respiratory rate 18, temperature 97.9 degrees Fahrenheit. HEENT: PERRLA. NECK: Range of motion is full in all directions. No tenderness to paracervical muscles. No adenopathy. LUNGS: Decreased breath sounds bilaterally. HEART: S1 and S2 regular. ABDOMEN: Tenderness to palpation. BACK: Range of motion is decreased in flexion and extension. EXTREMITIES: Upper and lower extremity range of motion is decreased due to the patient's condition. No cyanosis. No clubbing. Sensory is reduced. Reflexes are not obtainable. No adenopathy. ASSESSMENT/PLAN: A 64-year-old male with abdominal pain, gastroenteritis. The patient will be started on morphine as needed. The patient was discussed with Dr. Kumar and Dr. Kumar concurred. We will follow the patient. Thank you very much for the courtesy of this consultation. Geneva Kumar M.D. RAHUL Miller DR: SHERRILL JOB#: [id number] CC: MEGAN
--- NOTE | 2020-05-08 23:53 | Cardiology Progress Note ---
Assessment/Plan Assessment/Plan 1. Shortness of breath, possibly pulmonary in origin, CT scan of chest confirmed bilateral pneumonia, awaiting 2D echo in am. 2. Hypovolemic shock with systolic blood pressure below 100 mmHg due to volume loss during episodes of diarrhea, continue hydration. Subjective Subjective Sinus rhythm at rate of 68. Objective Last 24 Hour Vital Signs Date Time Temp Pulse Resp B/P (MAP) Pulse Ox O2 Delivery O2 Flow Rate FiO2 05/08/20 21:00 Room Air 05/08/20 20:48 168 95/60 05/08/20 20:00 68 05/08/20 20:00 98.1 61 18 168/95 (119) 98 05/08/20 16:00 98.1 67 18 141/95 (110) 97 05/08/20 16:00 65 05/08/20 12:00 73 05/08/20 12:00 97.9 65 20 145/79 (101) 98 05/08/20 09:00 Room Air 05/08/20 08:00 58 05/08/20 08:00 97.9 60 18 134/76 (95) 95 05/08/20 04:00 97.9 58 20 115/62 (79) 95 05/08/20 04:00 55 05/08/20 00:00 97.7 55 20 118/67 (84) 96 05/08/20 00:00 59 Intake and Output 05/07/20 05/08/20 19:00 07:00 Intake Total 0 ml 800 ml Output Total 1150 ml Balance 0 ml -350 ml Intake Oral 0 ml 800 ml Output Urine Total 1150 ml # Voids 4 Laboratory Tests Test 05/08/20 06:10 05/08/20 16:20 White Blood Count 6.4 K/UL (4.8-10.8) Red Blood Count 3.67 M/UL (4.70-6.10) L Hemoglobin 9.4 G/DL (14.2-18.0) L Hematocrit 30.8 % (42.0-52.0) L Mean Corpuscular Volume 84 FL (80-99) Mean Corpuscular Hemoglobin 25.5 PG (27.0-31.0) L Mean Corpuscular Hemoglobin Concent 30.4 G/DL (32.0-36.0) L Red Cell Distribution Width 17.3 % (11.6-14.8) H Platelet Count 201 K/UL (150-450) Mean Platelet Volume 7.8 FL (6.5-10.1) Neutrophils (%) (Auto) 62.5 % (45.0-75.0) Lymphocytes (%) (Auto) 26.1 % (20.0-45.0) Monocytes (%) (Auto) 7.5 % (1.0-10.0) Eosinophils (%) (Auto) 2.6 % (0.0-3.0) Basophils (%) (Auto) 1.3 % (0.0-2.0) Sodium Level 140 MMOL/L (136-145) Potassium Level 4.2 MMOL/L (3.5-5.1) Chloride Level 108 MMOL/L (98-107) H Carbon Dioxide Level 27 MMOL/L (21-32) Anion Gap 6 mmol/L (5-15) Blood Urea Nitrogen 14 mg/dL (7-18) Creatinine 1.2 MG/DL (0.55-1.30) Estimat Glomerular Filtration Rate > 60 mL/min (>60) Glucose Level 78 MG/DL (74-106) Calcium Level 8.3 MG/DL (8.5-10.1) L Total Bilirubin 0.2 MG/DL (0.2-1.0) Aspartate Amino Transf (AST/SGOT) 28 U/L (15-37) Alanine Aminotransferase (ALT/SGPT) 42 U/L (12-78) Alkaline Phosphatase 65 U/L (46-116) Total Protein 5.5 G/DL (6.4-8.2) L Albumin 2.7 G/DL (3.4-5.0) L Globulin 2.8 g/dL Albumin/Globulin Ratio 1.0 (1.0-2.7) Stool Occult Blood Pending Microbiology Date/Time Source Procedure Growth Status 05/07/20 08:55 Nasopharynx SARS-CoV-2 RdRp Gene Assay - Final Complete 05/07/20 10:10 Urine,Clean Catch Urine Culture - Preliminary NO GROWTH Resulted Objective HEENT: Atraumatic, normocephalic. Anicteric. Pupils are equal, round, and reactive to light and accommodation. Extraocular muscles intact. Positive dry mucosal membrane. NECK: JVP is less than 5 cm. No carotid bruit. Carotid upstrokes 2+ bilaterally. CARDIOVASCULAR: Normal S1, S2. Regular rate and rhythm. No murmurs, gallops, or rubs. PMI is at fourth intercostal space in the midclavicular line. LUNGS: Clear to auscultation bilaterally. ABDOMEN: Epigastric tenderness. Otherwise, no hepatosplenomegaly. Positive bowel sounds. EXTREMITIES: No evidence of edema, clubbing, or cyanosis. Ruben Lozano MD May 08, 2020 23:53
[2020-05-09] VITALS: BP 118/64
--- NOTE | 2020-05-09 00:15 | History and Physical Report ---
DATE OF ADMISSION: 05/07/2020 HISTORY OF PRESENT ILLNESS: The patient basically comes in for abdominal pain, GI bleed, diarrhea, chest pain, shortness of breath, also admitted for sepsis, rule out pneumonia. The patient's abdominal pain for 3 days and chest pain for 3 days and back pain and neck pain as well. Feels weak. The patient had multiple GI surgeries that included gastrectomy for infected lap pattern, repair of SPO in the past. The patient also had cholecystectomy and chest pain. The patient is also admitted for chest pain, rule out acute coronary syndrome. Denies orthopnea. Denies cough. Denies wheezing. PAST MEDICAL HISTORY: Significant for anxiety, insomnia, hypertension, BPH, and chronic pain syndrome. PAST SURGICAL HISTORY: Cholecystectomy, right shoulder surgery, gastrectomy for infected lap pannus, status post repair. ALLERGIES: No known allergies. FAMILY HISTORY: Noncontributory. SOCIAL HISTORY: He does have history of smoking. Denies history of drug abuse. Denies history of alcohol abuse. No known allergies. MEDICATIONS: BuSpar, dicyclomine, duloxetine, gabapentin, metoprolol, and Flomax. FAMILY HISTORY: Noncontributory. REVIEW OF SYSTEMS: HEENT: Denies headaches. RESPIRATORY: He does have shortness of breath. Denies cough. CARDIOVASCULAR: Reports chest pain x3 days. Denies orthopnea. Denies radiation of chest pain. GASTROINTESTINAL: Reports abdominal pain for 3 days also multiple diarrhea episodes of watery stools and also has black stools. CENTRAL NERVOUS SYSTEM: Denies change in speech pattern. Feels weak. PHYSICAL EXAMINATION: VITAL SIGNS: Temperature is 97.9, pulse is 73, blood pressure 145/79. HEENT: PERRLA. NECK: Supple. No lymphadenopathy. CHEST: Clear to auscultation. CARDIOVASCULAR: Regular rate and rhythm. No murmurs or extra sounds. GASTROINTESTINAL: Soft, nontender. A little bit epigastric tenderness, however, no rebound. ABDOMEN: Soft. No organomegaly. EXTREMITIES: No edema. Moves all four extremities. Sensory intact to touch. Reflexes equal on both sides. LABORATORY DATA: WBC of 6.5, hemoglobin 10.2, platelets 203. Sodium 140, potassium 4.2, BUN of 18, creatinine 1.3, glucose of 142, and troponin 0.013. ASSESSMENT AND PLAN: 1. Abdominal pain. 2. Gastrointestinal bleeding. 3. Diarrhea. 4. Chest pain. 5. Shortness of breath. 6. Sepsis. 7. Pneumonia. CT shows bibasilar infiltrates. 8. Rule out acute coronary syndrome. 9. I have consulted Dr. Kumar, Dr. Stovall, Dr. Lowe, and Dr. Shyam Wang as well as Dr. Lozano, Dr. Leonid Bateman to help with the management of the above-mentioned abnormalities and abnormal values as well as abdominal imaging as well as abnormal laboratories as well as abdominal symptoms. Antibiotic per Dr. Leonid Bateman. Alexx Curiel M.D. DR: Shannon JOB#: [id number] CC:
--- NOTE | 2020-05-09 03:02 | NUR ---
HAND-OFF: Report given to SHREE Squires. Patient is stable no SOB or acute distress. Endorsed plan of care. Pending OB stool results.
--- NOTE | 2020-05-09 03:05 | NUR ---
NURSE NOTES: Got report from Yolanda SWANN. Pt in stable condition. Continue to monitor.
[2020-05-09] MEDS: Morphine Sulfate 2mg/ml Inj(IV/IM USE ONLY) IVP PRN ×4 (03:15→21:43)
--- NOTE | 2020-05-09 03:30 | Consultation ---
DATE OF CONSULTATION: 05/08/2020 CONSULTING PHYSICIAN: Dewayne Stovall MD. HISTORY OF PRESENT ILLNESS: Patient is a 64-year-old male with a history of depression and anxiety as well as heart disease and multiple abdominal surgeries who has been admitted to the hospital for medical stabilization. Patient is here due to extreme fatigue. The patient is taking antidepressants outside of the hospital. Complained of anxiety, restlessness. No suicidal or homicidal ideation. Recently started on Cymbalta and BuSpar. PAST MEDICAL HISTORY: Significant for several abdominal surgeries and heart disease. ALLERGIES: No known drug allergies. SUBSTANCE ABUSE HISTORY: No known history of illicit drug use or alcohol. MENTAL STATUS EXAMINATION: Alert, oriented times self, place, situation, and date. Mood is anxious. Affect is constricted, congruent with mood. Thought process is concrete. Thought content, no suicidal or homicidal ideation. Cognition is intact. Insight and judgment fair. ASSESSMENT: [place] I Major depressive disorder. [place] II Deferred. [place] III As above. [place] IV Low. [place] V 50 PLAN: 1. Patient will be started on BuSpar. 2. Cymbalta. 3. Provide the patient with reality orientation and supportive therapy. 4. Seroquel p.r.n. for anxiety. Dewayne Stovall M.D. DR: FELIPE JOB#: [id number] CC: MEGAN
[2020-05-09 04:00] VITALS: BP 134/81
--- NOTE | 2020-05-09 07:35 | NUR ---
HAND-OFF: Report given to Alina SWANN.
[2020-05-09 08:00] VITALS: BP 135/87
--- NOTE | 2020-05-09 08:05 | NUR ---
NURSE NOTES: Received pt from SHREE Squires. Pt A/O x4. No s/s of acute respiratory and cardiac distress. Currently on room air. SL on right FA, patent and intact. Bed in low position, side rails up x2 and call light within reach. Will continue to monitor.
[2020-05-09] MEDS: Pantoprazole Inj IVP SCH ×2 (08:43→21:42)
[2020-05-09] MEDS: Sucralfate 1gm tab ORAL SCH ×4 (08:43→21:42)
[2020-05-09] MEDS: Aspirin EC 325mg tab ORAL SCH (08:43)
[2020-05-09] MEDS: Tamsulosin 0.4mg cap ORAL SCH (08:44)
[2020-05-09] MEDS: BusPIRone 5mg Tab ORAL SCH ×2 (08:48→18:04)
--- NOTE | 2020-05-09 10:05 | Pulmonology Progress Note ---
Subjective ROS Limited/Unobtainable: Yes Interval Events: Seen by GI Constitutional: Reports: no symptoms HEENT: Repors: no symptoms Respiratory: Reports: dry cough, shortness of breath Cardiovascular: Reports: no symptoms Gastrointestinal/Abdominal: Reports: nausea Genitourinary: Reports: no symptoms Allergies: Coded Allergies: No Known Allergies (Unverified , 05/07/20) Objective Last 24 Hour Vital Signs Date Time Temp Pulse Resp B/P (MAP) Pulse Ox O2 Delivery O2 Flow Rate FiO2 05/09/20 08:43 62 135/87 05/09/20 08:00 63 05/09/20 08:00 98.1 62 16 135/87 (103) 98 05/09/20 04:00 54 05/09/20 04:00 97.7 60 18 134/81 (98) 96 05/09/20 03:45 98.1 05/09/20 00:00 98.1 64 17 118/64 (82) 94 05/09/20 00:00 77 05/08/20 21:00 Room Air 05/08/20 20:48 168 95/60 05/08/20 20:00 68 05/08/20 20:00 98.1 61 18 168/95 (119) 98 05/08/20 16:00 98.1 67 18 141/95 (110) 97 05/08/20 16:00 65 05/08/20 12:00 73 05/08/20 12:00 97.9 65 20 145/79 (101) 98 Intake and Output 05/08/20 05/09/20 19:00 07:00 Intake Total 360 ml Output Total 450 ml Balance -90 ml Intake Oral 360 ml Output Urine Total 450 ml # Voids 1 2 # Bowel Movements 1 General Appearance: no acute distress HEENT: normocephalic Respiratory: chest wall non-tender, lungs clear Cardiovascular: normal peripheral pulses, normal rate Abdomen: normal bowel sounds Microbiology Date/Time Source Procedure Growth Status 05/07/20 09:25 Blood Blood Culture - Preliminary NO GROWTH AFTER 24 HOURS Resulted 05/07/20 09:25 Blood Blood Culture - Preliminary NO GROWTH AFTER 24 HOURS Resulted 05/07/20 08:55 Nasopharynx SARS-CoV-2 RdRp Gene Assay - Final Complete 05/08/20 16:20 Stool Clostridium difficile Toxin Assay - Final Complete 05/07/20 10:10 Urine,Clean Catch Urine Culture - Preliminary NO GROWTH AFTER 24 HOURS Resulted Laboratory Tests 05/08/20 16:20: Stool Occult Blood [Pending] Current Medications Medications (Trade) Dose Ordered Sig/James Route PRN Reason Start Time Stop Time Status Last Admin Dose Admin Acetaminophen (Tylenol) 500 mg Q4H PRN ORAL Moderate Pain (Pain Scale 4-6) 05/07/20 18:30 06/06/20 18:29 05/07/20 18:37 Aspirin (Ecotrin) 325 mg DAILY ORAL 05/07/20 09:00 06/21/20 08:59 05/09/20 08:43 Buspirone HCl (Buspar) 30 mg TWICE A DAY ORAL 05/08/20 18:00 08/06/20 17:59 05/09/20 08:48 Duloxetine HCl (Cymbalta) 60 mg DAILY ORAL 05/09/20 09:00 08/07/20 08:59 05/09/20 08:44 Gabapentin (Neurontin) 100 mg THREE TIMES A DAY ORAL 05/08/20 18:00 06/07/20 17:59 05/09/20 08:43 Metoprolol Tartrate (Lopressor) 25 mg Q12HR ORAL 05/08/20 21:00 08/06/20 20:59 05/09/20 08:43 Morphine Sulfate (Morphine Sulfate) 2 mg Q6H PRN IVP For Severe Pain 05/07/20 18:30 05/14/20 18:29 05/09/20 09:18 Pantoprazole (Protonix) 40 mg EVERY 12 HOURS IVP 05/08/20 21:00 06/07/20 20:59 05/09/20 08:43 Quetiapine Fumarate (SEROqueL) 25 mg Q4H PRN ORAL depression 05/08/20 17:04 06/22/20 17:03 05/09/20 09:18 Sucralfate (Carafate) 1 gm FOUR TIMES A DAY ORAL 05/08/20 18:00 08/06/20 17:59 05/09/20 08:43 Tamsulosin HCl (Flomax) 0.4 mg DAILY ORAL 05/09/20 09:00 06/08/20 08:59 05/09/20 08:44 Assessment/Plan Assessment/Plan IMPRESSION: 1. Atelectasis. 2. Abdominal pain. 3. Chest pain. DISCUSSION: Noted GI evaluation. He has been seen by pain management as well. His home medications have been reviewed, and reconciled and continued. I will follow as needed as senior application programmer. Currently, I do not suspect an active pulmonary pathology. Saturating well on RA. Shyam Wang M.D. Shyam Wang MD May 09, 2020 10:05
--- NOTE | 2020-05-09 10:21 | Infectious Diseases Prog Note ---
Assessment/Plan Assessment/Plan IMPRESSION: 1. Watery diarrhea, likely viral gastroenteritis. 2. Lactic acidosis, resolved. 3. Anemia. 4. Fatigue. 5. Previous gastric surgeries. 6. Nicotine dependence. &. Major depression RECOMMENDATIONS: We will follow cultures. Observe off antibiotic. Subjective ROS Limited/Unobtainable: No Constitutional: Reports: no symptoms, other - feels better Respiratory: Reports: no symptoms Cardiovascular: Reports: no symptoms Gastrointestinal/Abdominal: Reports: other - mild epigastric pain; Denies: diarrhea Genitourinary: Reports: no symptoms Allergies: Coded Allergies: No Known Allergies (Unverified , 05/07/20) Objective Last 24 Hour Vital Signs Date Time Temp Pulse Resp B/P (MAP) Pulse Ox O2 Delivery O2 Flow Rate FiO2 05/09/20 08:43 62 135/87 05/09/20 08:00 63 05/09/20 08:00 98.1 62 16 135/87 (103) 98 05/09/20 04:00 54 05/09/20 04:00 97.7 60 18 134/81 (98) 96 05/09/20 03:45 98.1 05/09/20 00:00 98.1 64 17 118/64 (82) 94 05/09/20 00:00 77 05/08/20 21:00 Room Air 05/08/20 20:48 168 95/60 05/08/20 20:00 68 05/08/20 20:00 98.1 61 18 168/95 (119) 98 05/08/20 16:00 98.1 67 18 141/95 (110) 97 05/08/20 16:00 65 05/08/20 12:00 73 05/08/20 12:00 97.9 65 20 145/79 (101) 98 Height (Feet): 6 Height (Inches): 11.00 Weight (Pounds): 198 General Appearance: no acute distress HEENT: mucous membranes moist Respiratory/Chest: lungs clear Cardiovascular: normal rate Abdomen: soft, non tender Extremities: no edema Neurologic/Psychiatric: alert, oriented x 3, responsive Microbiology Date/Time Source Procedure Growth Status 05/07/20 09:25 Blood Blood Culture - Preliminary NO GROWTH AFTER 24 HOURS Resulted 05/07/20 09:25 Blood Blood Culture - Preliminary NO GROWTH AFTER 24 HOURS Resulted 05/07/20 08:55 Nasopharynx SARS-CoV-2 RdRp Gene Assay - Final Complete 05/08/20 16:20 Stool Clostridium difficile Toxin Assay - Final Complete 05/07/20 10:10 Urine,Clean Catch Urine Culture - Preliminary NO GROWTH AFTER 24 HOURS Resulted Laboratory Tests Test 05/08/20 16:20 Stool Occult Blood Pending Current Medications Medications (Trade) Dose Ordered Sig/James Route PRN Reason Start Time Stop Time Status Last Admin Dose Admin Acetaminophen (Tylenol) 500 mg Q4H PRN ORAL Moderate Pain (Pain Scale 4-6) 05/07/20 18:30 06/06/20 18:29 05/07/20 18:37 Aspirin (Ecotrin) 325 mg DAILY ORAL 05/07/20 09:00 06/21/20 08:59 05/09/20 08:43 Buspirone HCl (Buspar) 30 mg TWICE A DAY ORAL 05/08/20 18:00 08/06/20 17:59 05/09/20 08:48 Duloxetine HCl (Cymbalta) 60 mg DAILY ORAL 05/09/20 09:00 08/07/20 08:59 05/09/20 08:44 Gabapentin (Neurontin) 100 mg THREE TIMES A DAY ORAL 05/08/20 18:00 06/07/20 17:59 05/09/20 08:43 Metoprolol Tartrate (Lopressor) 25 mg Q12HR ORAL 05/08/20 21:00 08/06/20 20:59 05/09/20 08:43 Morphine Sulfate (Morphine Sulfate) 2 mg Q6H PRN IVP For Severe Pain 05/07/20 18:30 05/14/20 18:29 05/09/20 09:18 Pantoprazole (Protonix) 40 mg EVERY 12 HOURS IVP 05/08/20 21:00 06/07/20 20:59 05/09/20 08:43 Quetiapine Fumarate (SEROqueL) 25 mg Q4H PRN ORAL depression 05/08/20 17:04 06/22/20 17:03 05/09/20 09:18 Sucralfate (Carafate) 1 gm FOUR TIMES A DAY ORAL 05/08/20 18:00 08/06/20 17:59 05/09/20 08:43 Tamsulosin HCl (Flomax) 0.4 mg DAILY ORAL 05/09/20 09:00 06/08/20 08:59 05/09/20 08:44 Leonid Bateman MD May 09, 2020 10:21
[2020-05-09 12:00] VITALS: BP 130/71
--- NOTE | 2020-05-09 12:12 | General Progress Note ---
Assessment/Plan Problem List: (1) Abdominal pain ICD Codes: R10.9 - Unspecified abdominal pain SNOMED: 04175792 (2) Chest pain ICD Codes: R07.9 - Chest pain, unspecified SNOMED: 45503295 Assessment/Plan: anemia h/o gastric surg diarrhea ppi carafate anemia work up stool studies EGD if cleared by cardiology feels better CT reviewed Subjective ROS Limited/Unobtainable: Yes Allergies: Coded Allergies: No Known Allergies (Unverified , 05/07/20) Objective Last 24 Hour Vital Signs Date Time Temp Pulse Resp B/P (MAP) Pulse Ox O2 Delivery O2 Flow Rate FiO2 05/09/20 12:00 96.8 71 18 130/71 (90) 96 05/09/20 09:00 Room Air 05/09/20 08:43 62 135/87 05/09/20 08:00 63 05/09/20 08:00 98.1 62 16 135/87 (103) 98 05/09/20 04:00 54 05/09/20 04:00 97.7 60 18 134/81 (98) 96 05/09/20 03:45 98.1 05/09/20 00:00 98.1 64 17 118/64 (82) 94 05/09/20 00:00 77 05/08/20 21:00 Room Air 05/08/20 20:48 168 95/60 05/08/20 20:00 68 05/08/20 20:00 98.1 61 18 168/95 (119) 98 05/08/20 16:00 98.1 67 18 141/95 (110) 97 05/08/20 16:00 65 Intake and Output 05/08/20 05/09/20 19:00 07:00 Intake Total 360 ml Output Total 450 ml Balance -90 ml Intake Oral 360 ml Output Urine Total 450 ml # Voids 1 2 # Bowel Movements 1 Laboratory Tests 05/08/20 16:20: Stool Occult Blood [Pending] Height (Feet): 6 Height (Inches): 11.00 Weight (Pounds): 198 General Appearance: alert EENT: normal ENT inspection Neck: supple Cardiovascular: normal rate Respiratory/Chest: decreased breath sounds Abdomen: normal bowel sounds, non tender, soft Extremities: non-tender Ancelmo Lowe MD May 09, 2020 12:12
--- NOTE | 2020-05-09 13:06 | Cardiology Progress Note ---
Assessment/Plan Assessment/Plan 1. Shortness of breath, possibly pulmonary in origin, CT scan of chest confirmed bilateral pneumonia, awaiting 2D echo in am. 2. Hypovolemic shock with systolic blood pressure below 100 mmHg due to volume loss during episodes of diarrhea, continue hydration. Subjective Subjective Sinus bradycardia at rate of 58. Objective Last 24 Hour Vital Signs Date Time Temp Pulse Resp B/P (MAP) Pulse Ox O2 Delivery O2 Flow Rate FiO2 05/09/20 12:00 58 05/09/20 12:00 96.8 71 18 130/71 (90) 96 05/09/20 09:00 Room Air 05/09/20 08:43 62 135/87 05/09/20 08:00 63 05/09/20 08:00 98.1 62 16 135/87 (103) 98 05/09/20 04:00 54 05/09/20 04:00 97.7 60 18 134/81 (98) 96 05/09/20 03:45 98.1 05/09/20 00:00 98.1 64 17 118/64 (82) 94 05/09/20 00:00 77 05/08/20 21:00 Room Air 05/08/20 20:48 168 95/60 05/08/20 20:00 68 05/08/20 20:00 98.1 61 18 168/95 (119) 98 05/08/20 16:00 98.1 67 18 141/95 (110) 97 05/08/20 16:00 65 Intake and Output 05/08/20 05/09/20 19:00 07:00 Intake Total 360 ml Output Total 450 ml Balance -90 ml Intake Oral 360 ml Output Urine Total 450 ml # Voids 1 2 # Bowel Movements 1 Laboratory Tests Test 05/08/20 16:20 Stool Occult Blood Negative (NEGATIVE) Microbiology Date/Time Source Procedure Growth Status 05/07/20 09:25 Blood Blood Culture - Preliminary NO GROWTH AFTER 24 HOURS Resulted 05/07/20 09:25 Blood Blood Culture - Preliminary NO GROWTH AFTER 24 HOURS Resulted 05/07/20 08:55 Nasopharynx SARS-CoV-2 RdRp Gene Assay - Final Complete 05/08/20 16:20 Stool Clostridium difficile Toxin Assay - Final Complete 05/07/20 10:10 Urine,Clean Catch Urine Culture - Preliminary NO GROWTH AFTER 24 HOURS Resulted Objective HEENT: Atraumatic, normocephalic. Anicteric. Pupils are equal, round, and reactive to light and accommodation. Extraocular muscles intact. Positive dry mucosal membrane. NECK: JVP is less than 5 cm. No carotid bruit. Carotid upstrokes 2+ bilaterally. CARDIOVASCULAR: Normal S1, S2. Regular rate and rhythm. No murmurs, gallops, or rubs. PMI is at fourth intercostal space in the midclavicular line. LUNGS: Clear to auscultation bilaterally. ABDOMEN: Epigastric tenderness. Otherwise, no hepatosplenomegaly. Positive bowel sounds. EXTREMITIES: No evidence of edema, clubbing, or cyanosis. Ruben Lozano MD May 09, 2020 13:06
--- NOTE | 2020-05-09 14:04 | NUR ---
CASE MANAGEMENT: REVIEW 05/09/2020 SI:SEPSIS. PNA VS: T 96.8 HR 71 RR 18 B/P 130/71 SATS 96% ON RA LABS: NONE TODAY IS:BUSPAR PO BID ASA PO QD FLOMAX PO QD CYMBALTA PO QD LOPRESSOR PO Q12H CARAFATE PO QID TELE PLAN OF CARE: EGD
[2020-05-09 16:00] VITALS: BP 135/84
--- NOTE | 2020-05-09 16:30 | Consultation ---
DATE OF CONSULTATION: 05/07/2020 NOTE: INCOMPLETE DICTATION CARDIOLOGY CONSULTATION CONSULTING PHYSICIAN: Ruben Lozano MD REFERRING PHYSICIAN: Alexx Curiel MD REASON FOR CONSULTATION: Management of hypotension. HISTORY OF PRESENT ILLNESS: The patient is a very unfortunate 64-year-old gentleman Ruben Lozano M.D. DR: GEOFF JOB#: [id number] CC:
--- NOTE | 2020-05-09 16:30 | General Progress Note ---
Assessment/Plan Assessment/Plan: (1) Abdominal pain (2) Gastroenteritis Patient to be continued on Morphine as needed D/w Dr. Kumar and he concurred. Subjective Date patient seen: May 09, 2020 Time patient seen: 04:15 - pm Constitutional: Reports: no symptoms HEENT: Reports: no symptoms Cardiovascular: Reports: no symptoms Respiratory: Reports: no symptoms Gastrointestinal/Abdominal: Reports: no symptoms Genitourinary: Reports: no symptoms Neurologic/Psychiatric: Reports: no symptoms Endocrine: Reports: no symptoms Hematologic/Lymphatic: Reports: no symptoms Allergies: Coded Allergies: No Known Allergies (Unverified , 05/07/20) Subjective In bed sitting up no signs of pain or distress. Pain is tolerated on the Morphine. No new complaints at this time. Objective Last 24 Hour Vital Signs Date Time Temp Pulse Resp B/P (MAP) Pulse Ox O2 Delivery O2 Flow Rate FiO2 05/09/20 16:00 99.3 58 19 135/84 (101) 97 05/09/20 12:00 58 05/09/20 12:00 96.8 71 18 130/71 (90) 96 05/09/20 09:00 Room Air 05/09/20 08:43 62 135/87 05/09/20 08:00 63 05/09/20 08:00 98.1 62 16 135/87 (103) 98 05/09/20 04:00 54 05/09/20 04:00 97.7 60 18 134/81 (98) 96 05/09/20 03:45 98.1 05/09/20 00:00 98.1 64 17 118/64 (82) 94 05/09/20 00:00 77 05/08/20 21:00 Room Air 05/08/20 20:48 168 95/60 05/08/20 20:00 68 05/08/20 20:00 98.1 61 18 168/95 (119) 98 Intake and Output 05/08/20 05/09/20 19:00 07:00 Intake Total 360 ml Output Total 450 ml Balance -90 ml Intake Oral 360 ml Output Urine Total 450 ml # Voids 1 2 # Bowel Movements 1 Height (Feet): 6 Height (Inches): 11.00 Weight (Pounds): 198 General Appearance: alert EENT: PERRL/EOMI, normal ENT inspection Neck: non-tender, normal alignment Cardiovascular: normal rate, regular rhythm Respiratory/Chest: decreased breath sounds Abdomen: non tender, soft Edema: no edema noted Generalized Neurologic: alert, oriented x 3 Skin: normal pigmentation Azam Guillen May 09, 2020 16:30
--- NOTE | 2020-05-09 19:02 | NUR ---
HAND-OFF: Report given to SHREE Guerrero.
--- NOTE | 2020-05-09 19:05 | NUR ---
NURSE NOTES: Report received by SHREE Fuller. Patient is in bed awake alert and makes needs known. No SOB or chest pain. Call light and bedside table within reach. Bed in lowest position locked and siderails up. Patient will be NPO midnight. Explained to patient that he will be NPO after midnight for EDG procedure in AM. Patient verbalized understanding. Will continue with plan of care.
[2020-05-09 20:00] VITALS: BP 132/71
--- NOTE | 2020-05-09 21:58 | General Progress Note ---
Assessment/Plan Problem List: (1) Pneumonia ICD Codes: J18.9 - Pneumonia, unspecified organism SNOMED: 522678511 (2) Severe sepsis ICD Codes: A41.9 - Sepsis, unspecified organism; R65.20 - Severe sepsis without septic shock SNOMED: 08378051 (3) Abdominal pain ICD Codes: R10.9 - Unspecified abdominal pain SNOMED: 55209247 (4) Chest pain ICD Codes: R07.9 - Chest pain, unspecified SNOMED: 54702224 Status: progressing Assessment/Plan: afebrile nac pna sepsis abdominal pain vitals stable Subjective ROS Limited/Unobtainable: Yes Allergies: Coded Allergies: No Known Allergies (Unverified , 05/07/20) Objective Last 24 Hour Vital Signs Date Time Temp Pulse Resp B/P (MAP) Pulse Ox O2 Delivery O2 Flow Rate FiO2 05/09/20 21:42 60 139/74 05/09/20 16:00 99.3 58 19 135/84 (101) 97 05/09/20 16:00 60 05/09/20 12:00 58 05/09/20 12:00 96.8 71 18 130/71 (90) 96 05/09/20 09:00 Room Air 05/09/20 08:43 62 135/87 05/09/20 08:00 63 05/09/20 08:00 98.1 62 16 135/87 (103) 98 05/09/20 04:00 54 05/09/20 04:00 97.7 60 18 134/81 (98) 96 05/09/20 03:45 98.1 05/09/20 00:00 98.1 64 17 118/64 (82) 94 05/09/20 00:00 77 Intake and Output 05/08/20 05/09/20 19:00 07:00 Intake Total 360 ml Output Total 450 ml Balance -90 ml Intake Oral 360 ml Output Urine Total 450 ml # Voids 1 2 # Bowel Movements 1 Height (Feet): 6 Height (Inches): 11.00 Weight (Pounds): 198 Alexx Curiel MD May 09, 2020 21:58
--- NOTE | 2020-05-09 23:01 | Psych Consult Progress Note ---
Psychiatry Progress Note Psychiatry Progress Note Subjective calmer still co anxiety Medications Current Medications Medications (Trade) Dose Ordered Sig/James Route PRN Reason Start Time Stop Time Status Last Admin Dose Admin Acetaminophen (Tylenol) 500 mg Q4H PRN ORAL Moderate Pain (Pain Scale 4-6) 05/07/20 18:30 06/06/20 18:29 05/07/20 18:37 Aspirin (Ecotrin) 325 mg DAILY ORAL 05/07/20 09:00 06/21/20 08:59 05/09/20 08:43 Buspirone HCl (Buspar) 30 mg TWICE A DAY ORAL 05/08/20 18:00 08/06/20 17:59 05/09/20 18:04 Duloxetine HCl (Cymbalta) 60 mg DAILY ORAL 05/09/20 09:00 08/07/20 08:59 05/09/20 08:44 Gabapentin (Neurontin) 100 mg THREE TIMES A DAY ORAL 05/08/20 18:00 06/07/20 17:59 05/09/20 18:02 Metoprolol Tartrate (Lopressor) 25 mg Q12HR ORAL 05/08/20 21:00 08/06/20 20:59 05/09/20 21:42 Morphine Sulfate (Morphine Sulfate) 2 mg Q6H PRN IVP For Severe Pain 05/07/20 18:30 05/14/20 18:29 05/09/20 21:43 Pantoprazole (Protonix) 40 mg EVERY 12 HOURS IVP 05/08/20 21:00 06/07/20 20:59 05/09/20 21:42 Quetiapine Fumarate (SEROqueL) 25 mg Q4H PRN ORAL depression 05/08/20 17:04 06/22/20 17:03 05/09/20 18:04 Sucralfate (Carafate) 1 gm FOUR TIMES A DAY ORAL 05/08/20 18:00 08/06/20 17:59 05/09/20 21:42 Tamsulosin HCl (Flomax) 0.4 mg DAILY ORAL 05/09/20 09:00 06/08/20 08:59 05/09/20 08:44 Neurological/Psychiatric: Reports: anxiety, depressed, emotional problems Allergies: Coded Allergies: No Known Allergies (Unverified , 05/07/20) Objective Data Height (Feet): 6 Height (Inches): 11.00 Weight (Pounds): 198 Additional Comments: Alert, oriented times self, place, situation, and date. Mood is anxious. Affect is constricted, congruent with mood. Thought process is concrete. Thought content, no suicidal or homicidal ideation. Cognition is intact. Insight and judgment fair. Assessment/Plan Status: progressing Assessment/Plan: ASSESSMENT: [place] I Major depressive disorder. [place] II Deferred. [place] III As above. [place] IV Low. [place] V 20 PLAN: 1. BuSpar. 2. Cymbalta. 3. Provide the patient with reality orientation and supportive therapy. 4. Seroquel p.r.n. for anxiety. Dewayne Stovall MD May 09, 2020 23:01
[2020-05-10] VITALS (11 sets, daily range): BP systolic 103–165; BP diastolic 50–89
[2020-05-10] MEDS: Morphine Sulfate 2mg/ml Inj(IV/IM USE ONLY) IVP PRN ×3 (05:23→18:03)
--- NOTE | 2020-05-10 07:32 | NUR ---
HAND-OFF: Report given to SHREE Arteaga. Plan of care endorsed. Made aware patient is NPO and will have EGD today.
--- NOTE | 2020-05-10 08:04 | NUR ---
NURSES NOTE: Received report from SHREE Guerrero. Pt is alseep in bed but arousable. Pt is A/O x3. No SOB or acute distress and on RA SATing well. Pain noted on his ABD and pain medication was given earlier and reminded that in 3 hours he can have again. Call light and bedside table within reach. Bed in lowest position locked and siderails up. Pt has been NPO since midnight and will have a EDG procedure that is scheduled for 1430. Pt verbalized understanding.
--- NOTE | 2020-05-10 08:15 | Pulmonology Progress Note ---
Subjective ROS Limited/Unobtainable: Yes Interval Events: Seen by GI Constitutional: Reports: no symptoms, other - feels better HEENT: Repors: no symptoms Respiratory: Reports: dry cough, shortness of breath Cardiovascular: Reports: no symptoms Gastrointestinal/Abdominal: Reports: other - mild epigastric pain; Denies: diarrhea Genitourinary: Reports: no symptoms Allergies: Coded Allergies: No Known Allergies (Unverified , 05/07/20) Objective Last 24 Hour Vital Signs Date Time Temp Pulse Resp B/P (MAP) Pulse Ox O2 Delivery O2 Flow Rate FiO2 05/10/20 08:00 98.7 56 18 120/74 (89) 98 05/10/20 04:00 97.9 54 18 127/79 (95) 98 05/10/20 04:00 54 05/10/20 00:00 98.2 62 18 140/75 (96) 96 05/09/20 21:42 60 139/74 05/09/20 21:00 Room Air 05/09/20 20:00 98.1 60 18 132/71 (91) 95 05/09/20 20:00 66 05/09/20 16:00 99.3 58 19 135/84 (101) 97 05/09/20 16:00 60 05/09/20 12:00 58 05/09/20 12:00 96.8 71 18 130/71 (90) 96 05/09/20 09:00 Room Air 05/09/20 08:43 62 135/87 Intake and Output 05/09/20 05/10/20 19:00 07:00 Intake Total 140 ml 100 ml Output Total 1200 ml 150 ml Balance -1060 ml -50 ml Intake Oral 140 ml 100 ml Output Urine Total 1200 ml 150 ml # Voids 3 1 General Appearance: no acute distress HEENT: normocephalic Respiratory: chest wall non-tender, lungs clear Cardiovascular: normal peripheral pulses, normal rate Abdomen: normal bowel sounds Microbiology Date/Time Source Procedure Growth Status 05/07/20 09:25 Blood Blood Culture - Preliminary NO GROWTH AFTER 48 HOURS Resulted 05/07/20 09:25 Blood Blood Culture - Preliminary NO GROWTH AFTER 48 HOURS Resulted 05/07/20 08:55 Nasopharynx SARS-CoV-2 RdRp Gene Assay - Final Complete 05/08/20 16:20 Stool Clostridium difficile Toxin Assay - Final Complete 05/07/20 10:10 Urine,Clean Catch Urine Culture - Final Gram Positive Cocci Complete Current Medications Medications (Trade) Dose Ordered Sig/James Route PRN Reason Start Time Stop Time Status Last Admin Dose Admin Acetaminophen (Tylenol) 500 mg Q4H PRN ORAL Moderate Pain (Pain Scale 4-6) 05/07/20 18:30 06/06/20 18:29 05/07/20 18:37 Aspirin (Ecotrin) 325 mg DAILY ORAL 05/07/20 09:00 06/21/20 08:59 05/09/20 08:43 Buspirone HCl (Buspar) 30 mg TWICE A DAY ORAL 05/08/20 18:00 08/06/20 17:59 05/09/20 18:04 Duloxetine HCl (Cymbalta) 60 mg DAILY ORAL 05/09/20 09:00 08/07/20 08:59 05/09/20 08:44 Gabapentin (Neurontin) 100 mg THREE TIMES A DAY ORAL 05/08/20 18:00 06/07/20 17:59 05/09/20 18:02 Metoprolol Tartrate (Lopressor) 25 mg Q12HR ORAL 05/08/20 21:00 08/06/20 20:59 05/09/20 21:42 Morphine Sulfate (Morphine Sulfate) 2 mg Q6H PRN IVP For Severe Pain 05/07/20 18:30 05/14/20 18:29 05/10/20 05:23 Pantoprazole (Protonix) 40 mg EVERY 12 HOURS IVP 05/08/20 21:00 06/07/20 20:59 05/09/20 21:42 Quetiapine Fumarate (SEROqueL) 25 mg Q4H PRN ORAL depression 05/08/20 17:04 06/22/20 17:03 05/10/20 05:28 Sucralfate (Carafate) 1 gm FOUR TIMES A DAY ORAL 05/08/20 18:00 08/06/20 17:59 05/09/20 21:42 Tamsulosin HCl (Flomax) 0.4 mg DAILY ORAL 05/09/20 09:00 06/08/20 08:59 05/09/20 08:44 Assessment/Plan Assessment/Plan IMPRESSION: 1. Atelectasis. 2. Abdominal pain. 3. Chest pain. DISCUSSION: Noted GI evaluation. He has been seen by pain management as well. His home medications have been reviewed, and reconciled and continued. I will follow as needed as portfolio specialist. Currently, I do not suspect an active pulmonary pathology. Saturating well on RA. [place] Frost Omar Syed MD May 10, 2020 08:15
[2020-05-10] MEDS: Tamsulosin 0.4mg cap ORAL SCH (09:09)
[2020-05-10] MEDS: Pantoprazole Inj IVP SCH ×2 (09:09→20:26)
[2020-05-10] MEDS: Sucralfate 1gm tab ORAL SCH ×4 (09:09→20:28)
[2020-05-10] MEDS: BusPIRone 5mg Tab ORAL SCH ×2 (09:09→18:02)
[2020-05-10] MEDS: Aspirin EC 325mg tab ORAL SCH (09:10)
--- NOTE | 2020-05-10 09:48 | NUR ---
CASE MANAGEMENT:REVIEW 05/10/20 SI: SEPSIS. PNA. ABD/CHEST PAIN 98.7 56 18 120/74 98% ON RA IS: ASA PO QD FLOMAX PO QD CYMBALTA PO QD IV PROTONIX Q12 LOPRESSOR PO Q12 CARAFATE PO QID NEURONTIN PO TID BUSPAR PO BID SEROQUEL PO Q4HRS PRN IV MORPHINE Q6HRS PRN : TELEMETRY STATUS DCP: FROM [facility] Addendum: 05/10/20 at 0956 by DARLENE MAHONEY LVN LVN PLAN: EGD TODAY
--- NOTE | 2020-05-10 09:56 | NUR ---
DISCHARGE PLANNING MESSAGE LEFT FOR DR QUINONES REQUESTING DISCHARGE AFTER EGD TODAY
--- NOTE | 2020-05-10 10:04 | General Progress Note ---
Assessment/Plan Assessment/Plan: (1) Abdominal pain (2) Gastroenteritis Patient to be continued on Morphine as needed D/w Dr. Kumar and he concurred. Subjective Date patient seen: May 10, 2020 Time patient seen: 09:15 - am Constitutional: Reports: no symptoms HEENT: Reports: no symptoms Cardiovascular: Reports: no symptoms Respiratory: Reports: no symptoms Gastrointestinal/Abdominal: Reports: no symptoms Genitourinary: Reports: no symptoms Neurologic/Psychiatric: Reports: no symptoms Endocrine: Reports: no symptoms Hematologic/Lymphatic: Reports: no symptoms Allergies: Coded Allergies: No Known Allergies (Unverified , 05/07/20) Subjective Patient showing no signs of pain or distress. No new complaints Pain has been tolerated on the Morphine as needed. Objective Last 24 Hour Vital Signs Date Time Temp Pulse Resp B/P (MAP) Pulse Ox O2 Delivery O2 Flow Rate FiO2 05/10/20 09:10 55 120/74 05/10/20 08:00 55 05/10/20 08:00 98.7 56 18 120/74 (89) 98 05/10/20 04:00 97.9 54 18 127/79 (95) 98 05/10/20 04:00 54 05/10/20 00:00 98.2 62 18 140/75 (96) 96 05/09/20 21:42 60 139/74 05/09/20 21:00 Room Air 05/09/20 20:00 98.1 60 18 132/71 (91) 95 05/09/20 20:00 66 05/09/20 16:00 99.3 58 19 135/84 (101) 97 05/09/20 16:00 60 05/09/20 12:00 58 05/09/20 12:00 96.8 71 18 130/71 (90) 96 Intake and Output 05/09/20 05/10/20 19:00 07:00 Intake Total 140 ml 100 ml Output Total 1200 ml 150 ml Balance -1060 ml -50 ml Intake Oral 140 ml 100 ml Output Urine Total 1200 ml 150 ml # Voids 3 1 Height (Feet): 5 Height (Inches): 9.00 Weight (Pounds): 198 General Appearance: no apparent distress, alert EENT: PERRL/EOMI, normal ENT inspection Neck: non-tender, normal alignment Cardiovascular: normal rate, regular rhythm Respiratory/Chest: lungs clear, normal breath sounds Abdomen: non tender, soft Edema: no edema noted Generalized Neurologic: alert, oriented x 3 Skin: normal pigmentation Azam Guillen May 10, 2020 10:04
--- NOTE | 2020-05-10 10:55 | Infectious Diseases Prog Note ---
Assessment/Plan Assessment/Plan IMPRESSION: 1. Watery diarrhea, likely gastroenteritis resolved 2. Lactic acidosis, resolved. 3. Anemia. 4. Fatigue. 5. Previous gastric surgeries. 6. Nicotine dependence. &. Major depression RECOMMENDATIONS: Will have EGD today Observe off antibiotic. Subjective ROS Limited/Unobtainable: No Constitutional: Reports: no symptoms Respiratory: Reports: no symptoms Cardiovascular: Reports: no symptoms Gastrointestinal/Abdominal: Reports: other - epigatric pain; Denies: diarrhea Genitourinary: Reports: no symptoms Allergies: Coded Allergies: No Known Allergies (Unverified , 05/07/20) Objective Last 24 Hour Vital Signs Date Time Temp Pulse Resp B/P (MAP) Pulse Ox O2 Delivery O2 Flow Rate FiO2 05/10/20 09:10 55 120/74 05/10/20 09:00 Room Air 05/10/20 08:00 55 05/10/20 08:00 98.7 56 18 120/74 (89) 98 05/10/20 04:00 97.9 54 18 127/79 (95) 98 05/10/20 04:00 54 05/10/20 00:00 98.2 62 18 140/75 (96) 96 05/09/20 21:42 60 139/74 05/09/20 21:00 Room Air 05/09/20 20:00 98.1 60 18 132/71 (91) 95 05/09/20 20:00 66 05/09/20 16:00 99.3 58 19 135/84 (101) 97 05/09/20 16:00 60 05/09/20 12:00 58 05/09/20 12:00 96.8 71 18 130/71 (90) 96 Height (Feet): 5 Height (Inches): 9.00 Weight (Pounds): 198 General Appearance: no acute distress HEENT: mucous membranes moist Respiratory/Chest: lungs clear Cardiovascular: bradycardia Abdomen: soft, non tender Extremities: no edema Neurologic/Psychiatric: alert, oriented x 3, responsive Microbiology Date/Time Source Procedure Growth Status 05/08/20 16:20 Stool Clostridium difficile Toxin Assay - Final Complete Current Medications Medications (Trade) Dose Ordered Sig/James Route PRN Reason Start Time Stop Time Status Last Admin Dose Admin Acetaminophen (Tylenol) 500 mg Q4H PRN ORAL Moderate Pain (Pain Scale 4-6) 05/07/20 18:30 8/27/20 18:29 05/07/20 18:37 Aspirin (Ecotrin) 325 mg DAILY ORAL 05/07/20 09:00 06/21/20 08:59 05/10/20 09:10 Buspirone HCl (Buspar) 30 mg TWICE A DAY ORAL 05/08/20 18:00 08/06/20 17:59 05/10/20 09:09 Duloxetine HCl (Cymbalta) 60 mg DAILY ORAL 05/09/20 09:00 08/07/20 08:59 05/10/20 09:08 Gabapentin (Neurontin) 100 mg THREE TIMES A DAY ORAL 05/08/20 18:00 06/07/20 17:59 05/10/20 09:08 Metoprolol Tartrate (Lopressor) 25 mg Q12HR ORAL 05/08/20 21:00 08/06/20 20:59 05/10/20 09:10 Morphine Sulfate (Morphine Sulfate) 2 mg Q6H PRN IVP For Severe Pain 05/07/20 18:30 05/14/20 18:29 05/10/20 05:23 Pantoprazole (Protonix) 40 mg EVERY 12 HOURS IVP 05/08/20 21:00 06/07/20 20:59 05/10/20 09:09 Quetiapine Fumarate (SEROqueL) 25 mg Q4H PRN ORAL depression 05/08/20 17:04 06/22/20 17:03 05/10/20 09:23 Sucralfate (Carafate) 1 gm FOUR TIMES A DAY ORAL 05/08/20 18:00 08/06/20 17:59 05/10/20 09:09 Tamsulosin HCl (Flomax) 0.4 mg DAILY ORAL 05/09/20 09:00 06/08/20 08:59 05/10/20 09:09 Leonid Bateman MD May 10, 2020 10:55
--- NOTE | 2020-05-10 11:18 | Pre-Procedure Note/Attestation ---
Pre-Procedure Note/Attestation Complete Prior to Procedure Planned Procedure: not applicable Procedure Narrative: egd Indications for Procedure Pre-Operative Diagnosis: abd pain Attestation I attest that I discussed the nature of the procedure; its benefits; risks and complications; and alternatives (and the risks and benefits of such alternatives ), prior to the procedure, with the patient (or the patient's legal computer help desk representative). I attest that, if there was a reasonable possibility of needing a blood transfusion, the patient (or the patient's legal computer help desk representative) was given the [facility] standardized written summary, pursuant to the Ron Wanda Blood Safety Act ([place] Health and Safety Code # 1645, as amended). I attest that I re-evaluated the patient just prior to the surgery and that there has been no change in the patient's H&P, except as documented below: Ancelmo Lowe MD May 10, 2020 11:18
[2020-05-10 11:29] LABS: BASOPHILS % (AUTO) 1.5 % (0.0-2.0); EOSINOPHILS % (AUTO) 1.1 % (0.0-3.0); HEMATOCRIT 32.6 % (42.0-52.0); LYMPHOCYTES % (AUTO) 17.6 % (20.0-45.0); MEAN CORPUSCULAR VOLUME 84 FL (80-99); MONOCYTES % (AUTO) 7.6 % (1.0-10.0); NEUTROPHILS % (AUTO) 72.2 % (45.0-75.0); PLATELET COUNT 216 K/UL (150-450); RED CELL DISTRIBUTION WIDTH 17.6 % (11.6-14.8); WHITE BLOOD COUNT 9.6 K/UL (4.8-10.8)
[2020-05-10 11:42] LABS: ALANINE AMINOTRANSFERASE 30 U/L (12-78); ALBUMIN 3.3 G/DL (3.4-5.0); ALKALINE PHOSPHATASE 76 U/L (46-116); ANION GAP 10 mmol/L (5-15); ASPARTATE AMINO TRANSFERASE 22 U/L (15-37); BILIRUBIN,TOTAL 0.2 MG/DL (0.2-1.0); BLOOD UREA NITROGEN 16 mg/dL (7-18); CALCIUM 8.8 MG/DL (8.5-10.1); CARBON DIOXIDE 24 MMOL/L (21-32); CHLORIDE 106 MMOL/L (98-107); CREATININE 1.2 MG/DL (0.55-1.30); SODIUM 140 MMOL/L (136-145)
[2020-05-10] MEDS ORDERED: fentaNYL 100 mcg/2 mL IV ONE (12:00)
[2020-05-10] MEDS ORDERED: Midazolam 2mg/2ml Inj ONE (12:00)
[2020-05-10] MEDS ORDERED: NS 500ML IVPB ONE (12:40)
--- NOTE | 2020-05-10 12:44 | Endoscopy Procedure Note ---
Endoscopy Procedure Note General Indication for Procedure: abd pain Procedures Performed: EGD Operative Findings/Diagnosis: gastritis Specimen: yes Pt Tolerated Procedure Well: Yes Estimated Blood Loss: none Anesthesia Anesthesiologist: luis Anesthesia: MAC Inserted Devices Implant(s) used?: No GI Core Measures 50 yrs or older w/o bx or poly: Not Applicable 10yrs. F/U recommended: Not Applicable Ancelmo Lowe MD May 10, 2020 12:44
--- NOTE | 2020-05-10 13:04 | Anethesia Preoperative Eval ---
Anesthesia Pre-op PMH/ROS General Date of Evaluation: May 10, 2020 Time of Evaluation: 12:35 Anesthesiologist: Genie ASA Score: ASA 3 Mallampati Score Class I : Soft palate, uvula, fauces, pillars visible Class II: Soft palate, uvula, fauces visible Class III: Soft palate, base of uvula visible Class IV: Only hard plate visible Mallampati Classification: Class II Surgeon: Chrissy Diagnosis: GI bleed Surgical Procedure: EGD Anesthesia History: none Allergies: Coded Allergies: No Known Allergies (Unverified , 05/07/20) Patient NPO?: Yes Past Medical History Cardiovascular: Reports: HTN; Denies: CAD, [place], valve dz, arrhythmia, other Pulmonary: Denies: asthma, COPD, BYRON, other Gastrointestinal/Genitourinary: Reports: GERD, other - s/p gastric bypass; Denies: CRI, ESRD Neurologic/Psychiatric: Reports: depression/anxiety; Denies: dementia, CVA, TIA, other Endocrine: Denies: DM, hypothyroidism, steroids, other HEENT: Denies: cataract (L), cataract (R), glaucoma, AFOGNAK (L), AFOGNAK (R), other Hematology/Immune: Reports: anemia - mild; Denies: DVT, bleeding disorder, other Musculoskeletal/Integumentary: Denies: OA, RA, DJD, DDD, edema, other PMH Narrative: as above PSxH Narrative: see H&P Anesthesia Pre-op Phys. Exam Physician Exam Last Vital Signs Date Time Temp Pulse Resp B/P (MAP) Pulse Ox O2 Delivery O2 Flow Rate FiO2 05/10/20 12:00 98.1 54 18 133/66 (88) 100 05/10/20 09:00 Room Air Constitutional: NAD Neurologic: CN 2-12 intact Cardiovascular: RRR Respiratory: CTA Gastrointestinal: S/NT/ND Airway Exam Mallampati Score: Class II MO: full Neck: flexible Dentures: no upper, no lower Anesthesia Pre-op A/P Labs Hematology Test 05/10/20 11:15 White Blood Count 9.6 K/UL (4.8-10.8) Red Blood Count 3.90 M/UL (4.70-6.10) L Hemoglobin 10.0 G/DL (14.2-18.0) L Hematocrit 32.6 % (42.0-52.0) L Mean Corpuscular Volume 84 FL (80-99) Mean Corpuscular Hemoglobin 25.6 PG (27.0-31.0) L Mean Corpuscular Hemoglobin Concent 30.6 G/DL (32.0-36.0) L Red Cell Distribution Width 17.6 % (11.6-14.8) H Platelet Count 216 K/UL (150-450) Mean Platelet Volume 7.9 FL (6.5-10.1) Neutrophils (%) (Auto) 72.2 % (45.0-75.0) Lymphocytes (%) (Auto) 17.6 % (20.0-45.0) L Monocytes (%) (Auto) 7.6 % (1.0-10.0) Eosinophils (%) (Auto) 1.1 % (0.0-3.0) Basophils (%) (Auto) 1.5 % (0.0-2.0) Chemistry Test 05/10/20 11:15 Sodium Level 140 MMOL/L (136-145) Potassium Level 4.0 MMOL/L (3.5-5.1) Chloride Level 106 MMOL/L (98-107) Carbon Dioxide Level 24 MMOL/L (21-32) Anion Gap 10 mmol/L (5-15) Blood Urea Nitrogen 16 mg/dL (7-18) Creatinine 1.2 MG/DL (0.55-1.30) Estimat Glomerular Filtration Rate > 60 mL/min (>60) Glucose Level 86 MG/DL (74-106) Calcium Level 8.8 MG/DL (8.5-10.1) Total Bilirubin 0.2 MG/DL (0.2-1.0) Aspartate Amino Transf (AST/SGOT) 22 U/L (15-37) Alanine Aminotransferase (ALT/SGPT) 30 U/L (12-78) Alkaline Phosphatase 76 U/L (46-116) Total Protein 6.5 G/DL (6.4-8.2) Albumin 3.3 G/DL (3.4-5.0) L Globulin 3.2 g/dL Albumin/Globulin Ratio 1.0 (1.0-2.7) Studies Pre-op Studies: EKG Risk Assessment & Plan Assessment: ASA 3 Plan: MAC Status Change Before Surgery: No Nattyko,Maykel MD May 10, 2020 13:04
--- NOTE | 2020-05-10 13:06 | Immediate Post-Op Evaluation ---
Immediate Post-Op Evalulation Immediate Post-Op Evalulation Procedure: EGD with Bx Date of Evaluation: May 10, 2020 Time of Evaluation: 13:05 IV Fluids: 200 Blood Products: none Estimated Blood Loss: none Urinary Output: none Blood Pressure Systolic: 146 Blood Pressure Diastolic: 78 Pulse Rate: 62 Respiratory Rate: 18 O2 Sat by Pulse Oximetry: 99 Temperature (Fahrenheit): 97.6 Pain Score (1-10): 2 Nausea: No Vomiting: No Complications none Patient Status: awake, patent, none Hydration Status: adequate Maykel Prescott MD May 10, 2020 13:06
--- NOTE | 2020-05-10 14:40 | 48 Hour Post Anesthesia Eval ---
Post Anesthesia Evaluation Procedure: EGD with Bx Date of Evaluation: May 10, 2020 Time of Evaluation: 14:39 Blood Pressure Systolic: 142 0: 78 Pulse Rate: 68 Respiratory Rate: 22 Temperature (Fahrenheit): 97.6 O2 Sat by Pulse Oximetry: 99 Airway: patent Nausea: No Vomiting: No Pain Intensity: 1 Hydration Status: adequate Cardiopulmonary Status: stable Mental Status/LOC: patient returned to baseline Follow-up Care/Observations: n/a Post-Anesthesia Complications: none Follow-up care needed: N/A Maykel Prescott MD May 10, 2020 14:40
--- NOTE | 2020-05-10 18:02 | Cardiology Progress Note ---
Assessment/Plan Assessment/Plan 1. Shortness of breath, possibly pulmonary in origin, CT scan of chest confirmed bilateral pneumonia, 2D echo shows normal LV systolic function. 2. Hypovolemic shock, resolved, now hypertensive, will start amlodipine. Subjective Subjective Sinus bradycardia at rate of 68. Objective Last 24 Hour Vital Signs Date Time Temp Pulse Resp B/P (MAP) Pulse Ox O2 Delivery O2 Flow Rate FiO2 05/10/20 14:40 68 22 99 05/10/20 13:30 97.8 50 19 156/88 100 Nasal Cannula 3 05/10/20 13:20 48 21 164/84 100 Nasal Cannula 3 05/10/20 13:11 51 21 158/89 100 Nasal Cannula 3 05/10/20 13:06 48 15 165/87 100 Nasal Cannula 3 05/10/20 13:06 62 18 99 05/10/20 13:01 97.0 51 26 158/74 99 Nasal Cannula 3 05/10/20 12:00 98.1 54 18 133/66 (88) 100 05/10/20 12:00 50 05/10/20 09:10 55 120/74 05/10/20 09:00 Room Air 05/10/20 08:00 55 05/10/20 08:00 98.7 56 18 120/74 (89) 98 05/10/20 04:00 97.9 54 18 127/79 (95) 98 05/10/20 04:00 54 05/10/20 00:00 98.2 62 18 140/75 (96) 96 05/09/20 21:42 60 139/74 05/09/20 21:00 Room Air 05/09/20 20:00 98.1 60 18 132/71 (91) 95 05/09/20 20:00 66 Intake and Output 05/09/20 05/10/20 18:59 06:59 Intake Total 140 ml 100 ml Output Total 1200 ml 150 ml Balance -1060 ml -50 ml Intake Oral 140 ml 100 ml Output Urine Total 1200 ml 150 ml # Voids 3 1 2D Echo: LVEF 65%, Mild AR, Grade I LVDD, RVSP 13 mmHg Laboratory Tests Test 05/10/20 11:15 White Blood Count 9.6 K/UL (4.8-10.8) Red Blood Count 3.90 M/UL (4.70-6.10) L Hemoglobin 10.0 G/DL (14.2-18.0) L Hematocrit 32.6 % (42.0-52.0) L Mean Corpuscular Volume 84 FL (80-99) Mean Corpuscular Hemoglobin 25.6 PG (27.0-31.0) L Mean Corpuscular Hemoglobin Concent 30.6 G/DL (32.0-36.0) L Red Cell Distribution Width 17.6 % (11.6-14.8) H Platelet Count 216 K/UL (150-450) Mean Platelet Volume 7.9 FL (6.5-10.1) Neutrophils (%) (Auto) 72.2 % (45.0-75.0) Lymphocytes (%) (Auto) 17.6 % (20.0-45.0) L Monocytes (%) (Auto) 7.6 % (1.0-10.0) Eosinophils (%) (Auto) 1.1 % (0.0-3.0) Basophils (%) (Auto) 1.5 % (0.0-2.0) Sodium Level 140 MMOL/L (136-145) Potassium Level 4.0 MMOL/L (3.5-5.1) Chloride Level 106 MMOL/L (98-107) Carbon Dioxide Level 24 MMOL/L (21-32) Anion Gap 10 mmol/L (5-15) Blood Urea Nitrogen 16 mg/dL (7-18) Creatinine 1.2 MG/DL (0.55-1.30) Estimat Glomerular Filtration Rate > 60 mL/min (>60) Glucose Level 86 MG/DL (74-106) Calcium Level 8.8 MG/DL (8.5-10.1) Total Bilirubin 0.2 MG/DL (0.2-1.0) Aspartate Amino Transf (AST/SGOT) 22 U/L (15-37) Alanine Aminotransferase (ALT/SGPT) 30 U/L (12-78) Alkaline Phosphatase 76 U/L (46-116) Total Protein 6.5 G/DL (6.4-8.2) Albumin 3.3 G/DL (3.4-5.0) L Globulin 3.2 g/dL Albumin/Globulin Ratio 1.0 (1.0-2.7) Microbiology Date/Time Source Procedure Growth Status 05/08/20 16:20 Stool Clostridium difficile Toxin Assay - Final Complete Objective HEENT: Atraumatic, normocephalic. Anicteric. Pupils are equal, round, and reactive to light and accommodation. Extraocular muscles intact. Positive dry mucosal membrane. NECK: JVP is less than 5 cm. No carotid bruit. Carotid upstrokes 2+ bilaterally. CARDIOVASCULAR: Normal S1, S2. Regular rate and rhythm. No murmurs, gallops, or rubs. PMI is at fourth intercostal space in the midclavicular line. LUNGS: Clear to auscultation bilaterally. ABDOMEN: Epigastric tenderness. Otherwise, no hepatosplenomegaly. Positive bowel sounds. EXTREMITIES: No evidence of edema, clubbing, or cyanosis. Ruben Lozano MD May 10, 2020 18:01
--- NOTE | 2020-05-10 18:30 | Procedure Note ---
DATE OF PROCEDURE: 05/10/2020 SURGEON: Ancelmo Lowe MD. PROCEDURE: Upper endoscopy with biopsy. ANESTHESIA: Per Dr. Prescott. REASON FOR PROCEDURE: The procedure, risks, benefits, and possible consequences, including hemorrhage, aspiration, perforation and infection, and alternative treatments, were explained to the patient/legal guardian by Dr. Ancelmo Lowe and the patient/legal guardian understood and accepted these risks. INDICATION: Abdominal pain. DESCRIPTION OF PROCEDURE: After informed consent was obtained and the patient was adequately sedated, Olympus upper endoscope was advanced from mouth into the esophagus. GE junction was found to be about 36 cm from the incisors. The patient had a very tiny gastric pouch and had a gastric bypass procedure with the Christian-en-Y. Both the afferent and efferent limbs were intubated. There was no evidence any active bleeding. No anastomotic ulceration. Random biopsies of the pouch was obtained. The patient tolerated procedure very well without any complications. SUMMARY OF FINDINGS: Very small gastric pouch and Christian-en-Y procedure. RECOMMENDATION: 1. Follow up biopsy results and treat accordingly. 2. Patient to be started on diet. 3. Okay to discharge. Ancelmo Lowe M.D. DR: OSBALDO JOB#: [id number] CC:
--- NOTE | 2020-05-10 19:23 | NUR ---
HAND OFF Report given to SHREE Garcia. Pt stable. Plan of care endorsed.
--- NOTE | 2020-05-10 21:58 | General Progress Note ---
Assessment/Plan Problem List: (1) Pneumonia ICD Codes: J18.9 - Pneumonia, unspecified organism SNOMED: 473906911 (2) Severe sepsis ICD Codes: A41.9 - Sepsis, unspecified organism; R65.20 - Severe sepsis without septic shock SNOMED: 42505349 (3) Abdominal pain ICD Codes: R10.9 - Unspecified abdominal pain SNOMED: 11990207 (4) Chest pain ICD Codes: R07.9 - Chest pain, unspecified SNOMED: 10783320 Status: progressing Assessment/Plan: s/p endoscopy cleared by gi for dc dc in am neg trop pna sepsis abdominal pain Subjective ROS Limited/Unobtainable: Yes Allergies: Coded Allergies: No Known Allergies (Unverified , 05/07/20) Objective Last 24 Hour Vital Signs Date Time Temp Pulse Resp B/P (MAP) Pulse Ox O2 Delivery O2 Flow Rate FiO2 05/10/20 20:31 65 103/50 05/10/20 20:00 98.1 71 19 103/50 (67) 98 05/10/20 20:00 71 05/10/20 18:35 54 118/70 05/10/20 18:15 118/70 05/10/20 16:00 97.8 58 18 118/70 (86) 98 05/10/20 16:00 54 05/10/20 14:40 68 22 99 05/10/20 13:30 97.8 50 19 156/88 100 Nasal Cannula 3 05/10/20 13:20 48 21 164/84 100 Nasal Cannula 3 05/10/20 13:11 51 21 158/89 100 Nasal Cannula 3 05/10/20 13:06 48 15 165/87 100 Nasal Cannula 3 05/10/20 13:06 62 18 99 05/10/20 13:01 97.0 51 26 158/74 99 Nasal Cannula 3 05/10/20 12:00 98.1 54 18 133/66 (88) 100 05/10/20 12:00 50 05/10/20 09:10 55 120/74 05/10/20 09:00 Room Air 05/10/20 08:00 55 05/10/20 08:00 98.7 56 18 120/74 (89) 98 05/10/20 04:00 97.9 54 18 127/79 (95) 98 05/10/20 04:00 54 05/10/20 00:00 98.2 62 18 140/75 (96) 96 Intake and Output 05/09/20 05/10/20 19:00 07:00 Intake Total 140 ml 100 ml Output Total 1200 ml 150 ml Balance -1060 ml -50 ml Intake Oral 140 ml 100 ml Output Urine Total 1200 ml 150 ml # Voids 3 1 Laboratory Tests 05/10/20 11:15: White Blood Count 9.6, Red Blood Count 3.90L, Hemoglobin 10.0L, Hematocrit 32.6L , Mean Corpuscular Volume 84, Mean Corpuscular Hemoglobin 25.6L, Mean Corpuscular Hemoglobin Concent 30.6L, Red Cell Distribution Width 17.6H, Platelet Count 216, Mean Platelet Volume 7.9, Neutrophils (%) (Auto) 72.2, Lymphocytes (%) (Auto) 17.6L, Monocytes (%) (Auto) 7.6, Eosinophils (%) (Auto) 1.1, Basophils (%) (Auto) 1.5, Sodium Level 140, Potassium Level 4.0, Chloride Level 106, Carbon Dioxide Level 24, Anion Gap 10, Blood Urea Nitrogen 16, Creatinine 1.2, Estimat Glomerular Filtration Rate > 60, Glucose Level 86, Calcium Level 8.8, Total Bilirubin 0.2, Aspartate Amino Transf (AST/SGOT) 22, Alanine Aminotransferase (ALT/SGPT) 30, Alkaline Phosphatase 76, Total Protein 6.5, Albumin 3.3L, Globulin 3.2, Albumin/Globulin Ratio 1.0 Height (Feet): 5 Height (Inches): 9.00 Weight (Pounds): 198 Alexx Curiel MD May 10, 2020 21:58
--- NOTE | 2020-05-10 23:15 | NUR ---
NURSE NOTES: Patient complained of dizziness, bgl 75, gave apple juice and tuna sandwich, bp: 110/60, spO2: 100%, respirations: 18, pr: 70, temp: 97.4. No changes in LOC, alert and oriented x4, no changes in patient condition. Side railsx2 up, bed in lowest and locked position, bed alarm activated, information technology assistant in place. Patient states: "i am feeling better and not dizzy anymore."
--- NOTE | 2020-05-10 23:17 | Psych Consult Progress Note ---
Psychiatry Progress Note Psychiatry Progress Note Medications Current Medications Medications (Trade) Dose Ordered Sig/James Route PRN Reason Start Time Stop Time Status Last Admin Dose Admin Acetaminophen (Tylenol) 500 mg Q4H PRN ORAL Moderate Pain (Pain Scale 4-6) 05/07/20 18:30 06/06/20 18:29 05/07/20 18:37 Amlodipine Besylate (Norvasc) 5 mg DAILY ORAL 05/10/20 18:15 06/09/20 18:14 05/10/20 18:35 Aspirin (Ecotrin) 325 mg DAILY ORAL 05/07/20 09:00 06/21/20 08:59 05/10/20 09:10 Buspirone HCl (Buspar) 30 mg TWICE A DAY ORAL 05/08/20 18:00 08/06/20 17:59 05/10/20 18:02 Clonidine HCl (Catapres Tab) 0.1 mg EVERY 8 HOURS ORAL 05/10/20 18:15 08/08/20 18:14 05/10/20 22:36 Duloxetine HCl (Cymbalta) 60 mg DAILY ORAL 05/09/20 09:00 08/07/20 08:59 05/10/20 09:08 Gabapentin (Neurontin) 100 mg THREE TIMES A DAY ORAL 05/08/20 18:00 06/07/20 17:59 05/10/20 18:02 Metoprolol Tartrate (Lopressor) 25 mg Q12HR ORAL 05/08/20 21:00 08/06/20 20:59 05/10/20 09:10 Morphine Sulfate (Morphine Sulfate) 2 mg Q6H PRN IVP For Severe Pain 05/07/20 18:30 05/14/20 18:29 05/10/20 18:03 Pantoprazole (Protonix) 40 mg EVERY 12 HOURS IVP 05/08/20 21:00 06/07/20 20:59 05/10/20 20:26 Quetiapine Fumarate (SEROqueL) 25 mg Q4H PRN ORAL depression 05/08/20 17:04 06/22/20 17:03 05/10/20 18:03 Sucralfate (Carafate) 1 gm FOUR TIMES A DAY ORAL 05/08/20 18:00 08/06/20 17:59 05/10/20 20:28 Tamsulosin HCl (Flomax) 0.4 mg DAILY ORAL 05/09/20 09:00 06/08/20 08:59 05/10/20 09:09 Allergies: Coded Allergies: No Known Allergies (Unverified , 05/07/20) Objective Data Height (Feet): 5 Height (Inches): 9.00 Weight (Pounds): 198 Assessment/Plan Status: progressing Assessment/Plan: ASSESSMENT: Harrells I Major depressive disorder. Harrells II Deferred. Harrells III As above. Harrells IV Low. Harrells V 20 PLAN: 1. BuSpar. 2. Cymbalta. 3. Provide the patient with reality orientation and supportive therapy. 4. Seroquel p.r.n. for anxiety. Dewayne Stovall MD May 10, 2020 23:17
[2020-05-11] VITALS: BP 107/55
[2020-05-11 04:00] VITALS: BP 136/84
[2020-05-11] MEDS: Morphine Sulfate 2mg/ml Inj(IV/IM USE ONLY) IVP PRN (05:47)
--- NOTE | 2020-05-11 07:01 | NUR ---
HAND-OFF: Report given to SHREE Arteaga. 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 Patient in stable condition.
--- NOTE | 2020-05-11 07:20 | NUR ---
NURSES NOTE: Received report from SHREE Guerrero. Pt is asleep in bed but arousable. Pt is A/O x3. No SOB or acute distress and on RA SATing well. Pain noted on his ABD but at a tolerable level. Call light and bedside table within reach. Bed in lowest position locked and siderails up. Pt verbalized understanding.
[2020-05-11 08:00] VITALS: BP 110/53
[2020-05-11] MEDS: Sucralfate 1gm tab ORAL SCH (08:09)
[2020-05-11] MEDS: Aspirin EC 325mg tab ORAL SCH (08:09)
[2020-05-11] MEDS: Tamsulosin 0.4mg cap ORAL SCH (08:09)
[2020-05-11] MEDS: BusPIRone 5mg Tab ORAL SCH (08:09)
[2020-05-11 08:10] VITALS: BP 152/84
[2020-05-11] MEDS: Pantoprazole Inj IVP SCH (08:10)
--- NOTE | 2020-05-11 10:07 | NUR ---
NURSES NOTE: Pt is A/O x 3 and ambulatory with cane. No SOB or acute distress noted. Pain noted at a tolerable level of 2/10 for pt. equipment monitor phototypesetting removed along with IV access. Pt dressed and escorted down to ER driveway where a private vehicle provided by [employer]. Pt left the hospital at 1000/
--- NOTE | 2020-05-14 08:52 | Discharge Summary ---
Discharge Summary Discharge Summary _ DATE OF ADMISSION: 05/07/2020 DATE OF DISCHARGE: [] DISCHARGED BY: 20 Dr. Rabago REASON FOR ADMISSION: [] 64 years old male 64 years old male with past medical history of cholecystectomy presented to emergency department complaining of extreme fatigue. Patient reported 10-11 episodes of watery diarrhea the day prior. Patient reported being extremely weak and fatigued. He denied headache or blurry vision. He denied focal weakness. He denied cough. No chest pain or shortness of breath patient reported epigastric abdominal pain patient also reported slight chest pain and shortness of breath. Patient reported history of heart disease and gets care in [place] he denies any sick contacts. EKG reveals sinus rhythm with first-degree AV block and inverted T waves . No PVC no ectopy. Chest x-ray revealed no acute cardiopulmonary pathology. Rapid COVID-19 in ED negative. Laboratory work-up revealed no leukocytosis hemoglobin 10.2 hematocrit 33.5. Troponin 0 0.013. Stable electrolytes. BUN 18, creatinine 1.3. Glucose 142. proBNP 1147. Albumin 3.0. Urinalysis revealed no evidence of urinary tract infection.. 4 chest x-ray revealed mild right basilar atelectasis as well as the aspirin and Protonix and admitted for further management. In emergency room patient pancultured started on empiric antibiotic. Patient received IV fluids., Aspirin and Protonix. Patient subsequently admitted for further management. CONSULTANTS: direct sales representative Dr. Ospina neurologist pulmonary Dr. Wang ID specialist Dr. Tejas Mercado GI specialist Dr. Lowe directional drill operator stitch marker/oncologist surgery psychiatrist Pain specialist Dr. Kumar HOSPITAL COURSE: [] Patient admitted to telemetry floor. Director Of [employer] followed. Serial troponins were negative troponin was negative EKG revealed no acute ischemic changes echocardiogram demonstrated preserved ejection fraction of 65%. No evidence of wall motion abnormality. Borderline left ventricular hypertrophy. Blood pressure in the emergency department was low patient started on the IV fluids Blood pressure stabilized. And direct sales representative managed the blood pressure with and started amlodipine. Supplemental oxygen provided and titrated to keep pulse oximetry above 92%. Pulmonary toilet provided. CTA of the chest revealed no evidence of pulmonary embolism. Bibasilar infiltrate noted. Patient was treated for pneumonia. As per ID specialist recommendation. CT scan of the abdomen and pelvis revealed intra-abdominal pathology. Status post cholecystectomy and prior gastric surgery. Pain management was addressed as per pain specialist recommendation. Stool for C. difficile was negative. Watery diarrhea was most likely a gastroenteritis which resolved with supportive measures. Lactic acidosis resolved as well. Hemoglobin hematocrit were closely monitored with goal to keep hemoglobin above 7 prior to discharge hemoglobin 10, hematocrit 32.6. Stool for occult blood was negative. Patient undergone upper endoscopy with a biopsy revealed very small gastric pouch and Christian and Y procedure patient slowly started on diet. Antiemetic were on board as needed GI prophylaxis provided. Pathology of gastric biopsy of gastric pouch revealed small bowel mucosa with no significant diagnostic abnormality. Slowly improving was ready for discharge patient was on PPI and Carafate Psychiatric medication optimized as per psychiatrist recommendation. FINAL DIAGNOSES: 1. [] Bulimic shock hypovolemic shock Acute gastroenteritis resolved Lactic acidosis resolved previous gastric surgery Major depressive disorder nicotine dependency Atelectasis Chest pain History of gastric surgery DISCHARGE MEDICATIONS: See Medication Reconciliation list. DISCHARGE INSTRUCTIONS: [] Patient was discharged home I have been assigned to dictate discharge summary for this account. I was not involved in the patient's management. Amna Liu NP May 14, 2020 08:52
== END 2020-05-11 10:00 | disposition home or self-care (01) | DRG 249 ==
LOC: EMR 08:53 → 2E 08:55 → EDBEDREQ 12:58 → 2E 14:16
PROC: 0DB68ZX Excision of Stomach, Via Natural or Artificial Opening Endoscopic, Diagnostic (ICD-10-PCS; principal; 2020-05-10 12:49)
DX: A08.4 Viral intestinal infection, unspecified (principal); R57.1 Hypovolemic shock; J18.9 Pneumonia, unspecified organism; F32.9 Major depressive disorder, single episode, unspecified; J98.11 Atelectasis; E87.2 Acidosis; Z90.3 Acquired absence of stomach [part of]; Z79.82 Long term (current) use of aspirin; I11.0 Hypertensive heart disease with heart failure; I50.9 Heart failure, unspecified; F17.200 Nicotine dependence, unspecified, uncomplicated; N40.0 Benign prostatic hyperplasia without lower urinary tract symptoms; R07.9 Chest pain, unspecified; I44.0 Atrioventricular block, first degree
CPT/HCPCS: 36415; 71045; 71275; 74177; 80053; 80307; 81003; 82270; 82550; 83605; 83690; 83735; 83880; 84100; 84484; 85025; 85610; 85730; 86850; 86900; 86901; 87040; 87086; 87324; 93005; 93306; 94003; 94150; 96361; 96365; 96368; 96375; 99291; J2250; J7030; U0002

== ENCOUNTER 2020-10-11 19:43 | Emergency (ER) | payer MEDICAID ==
[~2020-10-11] VITALS: Ht 182.9 cm; Wt 95.3 kg
[2020-10-11 19:43] VITALS: BP 147/91
[~2020-10-11 19:43] MED LIST: ASPIR 8181 MG ORAL; BUSPIRONE HCL30 MG ORAL; CYMBALTA60 MG ORAL; DICYCLOMINE HCL10 MG ORAL; FLOMAX0.4 MG ORAL; GABAPENTIN100 MG ORAL; MELATONIN5 M5 ORAL; METOPROLOL TART25 MG ORAL; NALTREXONE HCL50 MG PO
--- NOTE | 2020-10-11 19:43 | NUR ---
ED Nurse Note: Pt OMID RA [id number] from home s/p trip and fall on concrete. Per EMS report bystanders found pt unconcious. Upon arrival pt is AAOx4, breathing even and unlabored c/o right back pain, neck pain, and left shoulder pain. Pt states he remembers walking on side walk and tripped on uneven concrete. Pt denies feeling dizzyness or blurry vision before the incident. Pt able to mobilize arms and legs. PERRLA. No evidence of lesions noted.
[2020-10-11] MEDS ORDERED: HYDROcodone/Acetamin 5/325 tab ONE (19:53)
[2020-10-11] MEDS: HYDROcodone/Acetamin 5/325 tab ORAL ONE (19:54)
--- NOTE | 2020-10-11 19:54 | Emergency Room Report ---
History of Present Illness General Chief Complaint: Multiple Trauma/Fall Source: Patient Present Illness HPI 65-year-old male with no past medical history here after mechanical fall. Patient says that he was walking and stumbled on uneven pavement falling to the ground. Patient says he fell on grass. He hit his head and did have loss of consciousness. Unaware of how long he was unconscious. He was helped up by some bystanders. Is complaining now of a generalized headache, neck pain, lower back pain. Also complaining of some numbness rating down his right leg. No other focal numbness, chest pain, palpitation, shortness of breath, lightheadedness, syncope, presyncope, abdominal pain, nausea, vomiting, diarrhea, dysuria. The fall occurred just prior to coming to the emergency dep artment the patient has not attempted to urinate or defecate. Allergies: Coded Allergies: No Known Allergies (Unverified , 05/07/20) COVID-19 Screening Contact w/high risk pt: No Experienced COVID-19 symptoms?: No COVID-19 Testing performed COMMUNITY RECREATION PROGRAMMER: No Nursing Documentation-PMH Hx Hypertension: Yes Review of Systems All Other Systems: negative except mentioned in HPI Physical Exam Vital Signs Date Time Temp Pulse Resp B/P (MAP) Pulse Ox O2 Delivery O2 Flow Rate FiO2 10/11/20 19:36 98.6 84 20 142/90 (107) 99 Room Air Sp02 EP Interpretation: reviewed, normal General Appearance: no apparent distress, alert, GCS 15, non-toxic Head: normocephalic, atraumatic Eyes: bilateral eye normal inspection, bilateral eye PERRL ENT: hearing grossly normal, normal pharynx, no angioedema, normal voice Neck: full range of motion, supple/symm/no masses Respiratory: chest non-tender, lungs clear, normal breath sounds, speaking full sentences Cardiovascular #1: regular rate, rhythm, no edema Cardiovascular #2: 2+ carotid (R), 2+ carotid (L), 2+ radial (R), 2+ radial (L), 2+ dorsalis pedis (R), 2+ dorsalis pedis (L) Gastrointestinal: normal bowel sounds, non tender, soft, non-distended, no guarding, no rebound Rectal: deferred Genitourinary: normal inspection, no CVA tenderness Musculoskeletal: other - Tenderness on palpation of the midline cervical spine. Tenderness on palpation of the midline lower lumbar spine. Negative straight leg raise test. No other abnormalities Neurologic: alert, motor strength/tone normal, oriented x3, sensory intact, responsive, speech normal Psychiatric: judgement/insight normal, memory normal, mood/affect normal, no suicidal/homicidal ideation Reflexes: 3+ bicep (R), 3+ bicep (L), 3+ tricep (R), 3+ tricep (L), 3+ knee (R), 3+ knee (L) Lymphatic: no adenopathy Medical Decision Making Diagnostic Impression: Primary Impression: Back pain Additional Impressions: Head injury Fall ER Course 65-year-old male here after mechanical fall. CT head: Unremarkable CT cervical spine: Unremarkable CT L-spine: Unremarkable Patient had unremarkable CT scans. X-ray left shoulder: No acute bony abnormalities or dislocations Patient was ambulatory throughout the emergency part without difficulty. He was given pain medications in the ER and felt improved. Given prescription for Robaxin, acetaminophen, Lidoderm patch. He was neurovascularly intact. Told to come back to the emergency department with any worsening headache, vision changes, focal numbness or weakness. He expressed understanding and was discharged. Last Vital Signs Date Time Temp Pulse Resp B/P (MAP) Pulse Ox O2 Delivery O2 Flow Rate FiO2 10/11/20 19:36 98.6 84 20 142/90 (107) 99 Room Air Scripts Lidocaine Patch* (Lidoderm Patch*) 1 Each Adh..patch 1 PATCH TOPIC DAILY, #30 PATCH Patch(es) may remain in place for up to 12 hours in any 24-hour period. Prov: Adis Zuleta M.D. 10/11/20 Acetaminophen* (ACETAMINOPHEN 325MG TABLET*) 325 Mg Tablet 650 MG ORAL Q4H PRN for For Pain, #30 TAB Prov: Adis Zuleta M.D. 10/11/20 Methocarbamol* (ROBAXIN-750*) 750 Mg Tablet 750 MG PO QID, #28 TAB 0 Refills Prov: Adis uZleta M.D. 10/11/20 Adis Zuleta M.D. Oct 11, 2020 19:54
--- NOTE | 2020-10-11 20:20 | NUR ---
ED Nurse Note: biometrics technician at bedside
[2020-10-11] MEDS: Ketorolac 60mg Inj IM ONE (20:29)
--- NOTE | 2020-10-11 20:52 | NUR ---
ED Nurse Note: pt laying in bed, speaking on the phone. Pt states he feels better after Toradol administration.
--- NOTE | 2020-10-11 20:57 | NUR ---
ED Nurse Note: Pt went down to CT via gurney accompanied by CT staff, pt in stable condition AAOx4, able to speak in complete sentences.
--- NOTE | 2020-10-11 21:31 | Diagnostic Imaging Report ---
EXAM: CT Head Without Intravenous Contrast CLINICAL HISTORY: FALL TECHNIQUE: Axial computed tomography images of the head/brain without intravenous contrast. CTDI is 53.4 mGy and DLP is 1098.9 mGy-cm. One or more of the following dose reduction techniques were used: automated exposure control, adjustment of the mA and/or kV according to patient size, use of iterative reconstruction technique. COMPARISON: No relevant prior studies available. FINDINGS: Brain: No acute infarct, hemorrhage, mass or edema. Ventricles: Unremarkable. No ventriculomegaly. Bones/joints: Unremarkable. No acute calvarial fracture. Soft tissues: Unremarkable. Sinuses: Mild mucosal thickening of the paranasal sinuses. Mastoid air cells: Unremarkable as visualized. IMPRESSION: No acute infarct, hemorrhage, mass or edema.
--- NOTE | 2020-10-11 21:32 | Diagnostic Imaging Report ---
EXAM: XR Left Shoulder Complete, 2 or More Views CLINICAL HISTORY: FALL TECHNIQUE: Two or more views of the left shoulder. COMPARISON: No relevant prior studies available. FINDINGS: Bones/joints: Unremarkable. No acute fracture. No dislocation. Soft tissues: Unremarkable. IMPRESSION: Normal left shoulder x-rays.
--- NOTE | 2020-10-11 21:32 | Diagnostic Imaging Report ---
EXAM: XR Left Knee, 3 Views CLINICAL HISTORY: FALL TECHNIQUE: Three views of the left knee. COMPARISON: No relevant prior studies available. FINDINGS: Bones/joints: Unremarkable. No acute fracture. No dislocation. Soft tissues: Unremarkable. IMPRESSION: Normal left knee x-rays.
--- NOTE | 2020-10-11 21:48 | Diagnostic Imaging Report ---
EXAM: CT Cervical Spine Without Intravenous Contrast CLINICAL HISTORY: FALL TECHNIQUE: Axial computed tomography images of the cervical spine without intravenous contrast. CTDI is 20.2 mGy and DLP is 535.5 mGy-cm. One or more of the following dose reduction techniques were used: automated exposure control, adjustment of the mA and/or kV according to patient size, use of iterative reconstruction technique. COMPARISON: No relevant prior studies available. FINDINGS: Vertebrae: No acute fracture or traumatic malalignment. Discs/spinal canal/neural foramina: Multilevel degenerative changes. Soft tissues: Unremarkable. IMPRESSION: No acute fracture or traumatic malalignment.
--- NOTE | 2020-10-11 21:49 | Diagnostic Imaging Report ---
EXAM: CT Lumbar Spine Without Intravenous Contrast CLINICAL HISTORY: FALL TECHNIQUE: Axial computed tomography images of the lumbar spine without intravenous contrast. CTDI is 13 mGy and DLP is 561.7 mGy-cm. One or more of the following dose reduction techniques were used: automated exposure control, adjustment of the mA and/or kV according to patient size, use of iterative reconstruction technique. COMPARISON: No relevant prior studies available. FINDINGS: Vertebrae: No acute fracture or traumatic malalignment. Discs/spinal canal/neural foramina: Multilevel degenerative changes. Soft tissues: Unremarkable. Vasculature: Vascular calcifications. Kidneys and ureters: Nonobstructing calculus within the left kidney. 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 IMPRESSION: No acute fracture or traumatic malalignment.
--- NOTE | 2020-10-11 21:52 | NUR ---
ED Nurse Note: pt back from CT in stable condition.
[2020-10-11] MEDS ORDERED: ROBAXIN-750750 MG PO (22:05)
[2020-10-11] MEDS ORDERED: LIDODERM700 M1 TOPIC (22:05)
[2020-10-11] MEDS ORDERED: ACETAMINOPHEN325 M1 ORAL (22:05)
[2020-10-11 22:15] VITALS: BP 135/83
--- NOTE | 2020-10-11 22:15 | NUR ---
ER DISCHARGE NOTE: Patient is cleared to be discharged per ERMD, pt is aox4, on room air, with stable vital signs. pt was given dc and paper prescriptions instructions, pt was able to verbalize understanding, pt id band removed. pt is able to ambulate with steady gait. pt took all belongings.
== END 2020-10-11 22:15 | disposition home or self-care (01) ==
LOC: EDBD 19:43 → EMR 20:00
DX: M54.5 Low back pain (principal); S06.9X9A Unspecified intracranial injury with loss of consciousness of unspecified duration, initial encounter; I10 Essential (primary) hypertension; W01.10XA Fall on same level from slipping, tripping and stumbling with subsequent striking against unspecified object, initial encounter; Y93.01 Activity, walking, marching and hiking; Y92.9 Unspecified place or not applicable
CPT/HCPCS: 70450; 72125; 72131; 73030; 73560; 96372; Z7502; 99284